=== PATIENT | female | born 1980 | race Two or more races ===

== ENCOUNTER 2019-01-04 08:46 | Inpatient (IN) | payer MEDICAID ==
[~2019-01-04] VITALS: Ht 152.4 cm; Wt 68.7 kg
[2019-01-04 08:58] VITALS: Ht 152.4 cm; Wt 68.7 kg
[2019-01-04] MEDS ORDERED: LIDOCAINE 1% (MDV) 20 ML INJ SC ONE ×2 (09:30→11:00)
[2019-01-04] MEDS ORDERED: HYDROCODONE/APAP (5/325) TAB PO ONE ×3 (11:00→20:00)
[2019-01-04] MEDS ORDERED: ONDANSETRON 4 MG INJ IV STA (14:45)
[2019-01-04] MEDS ORDERED: morphine 4 MG/ML VIAL IV STA (14:45)
[2019-01-04] MEDS ORDERED: PIPER-TAZO 3.375 GM IV (PMX) 100 ML IVPB ONE (15:00)
[2019-01-04] MEDS ORDERED: SOD CHLORIDE 0.9% 1,000 ML IV ONE (15:00)
[2019-01-04] MEDS ORDERED: FLUCONAZOLE 150 MG TAB PO ONE (16:00)
--- NOTE | 2019-01-04 16:50 | QN ---
Documentation Comment Exhibit Carpenter consult Thank you for consulting with us 38 yo female with DM and wide cellulitis on her perineum and right side of labia major extending to thigh crease The abscess has been drained b ER provider and packed . There is a possibility that the abscess is not completely drained , CT pictures reviewed --->As the area is very swollen and traumatized and inflamed and there is a wide cellulitis,I do recommend admission and wide spectrum antibiotics and pain management --->patient will be reevaluated by Exhibit Carpenter team as soon as the inflammation goes down for the possible need for further drainage -->Please contact balloon artist physician for further evaluation EMILIANO VALENTE M.D. Jan 04, 2019 16:50
[2019-01-04] MEDS ORDERED: ACETAMINOPHEN 325 MG TAB PO PRN ×2 (18:00→22:00)
[2019-01-04] MEDS ORDERED: ONDANSETRON 4 MG INJ IV PRN (18:00)
--- NOTE | 2019-01-04 18:16 | HP ---
Date/Time of Note Date/Time of Note DATE: 01/04/19 TIME: 18:13 Assessment/Plan VTE Prophylaxis SCD contraindicated: low risk/ambulating Pharmacological prophylaxis: NA/contraindicated Pharm contraindication: low risk/ambulating Lines/Catheters IV Catheter Type (from Nrsg): Saline Lock Assessment/Plan Result Diagram: 01/04/19 1459 01/04/19 1459 Results 24hrs Laboratory Tests Test 01/04/19 12:59 01/04/19 14:59 01/04/19 15:04 01/04/19 15:21 POC Beta HCG, NEGATIVE Qualitative White Blood Count 13.1 H Red Blood Count 4.55 Hemoglobin 14.3 Hematocrit 41.6 Mean Corpuscular 91.4 Volume Mean Corpuscular 31.4 Hemoglobin Mean Corpuscular 34.4 Hemoglobin Concent Red Cell 11.7 Distribution Width Platelet Count 329 Mean Platelet Volume 10.1 Immature 0.400 Granulocytes % Neutrophils % 68.0 Lymphocytes % 24.2 Monocytes % 6.3 Eosinophils % 0.5 Basophils % 0.6 Nucleated Red Blood 0.0 Cells % Immature 0.050 H Granulocytes # Neutrophils # 8.9 H Lymphocytes # 3.2 H Monocytes # 0.8 Eosinophils # 0.1 Basophils # 0.1 Nucleated Red Blood 0.0 Cells # Sodium Level 138 Potassium Level 4.3 Chloride Level 99 Carbon Dioxide Level 30 Anion Gap 9 Blood Urea Nitrogen 6 L Creatinine 0.38 L Est Glomerular > 60 Filtrat Rate mL/min Glucose Level 277 H Calcium Level 9.7 Total Bilirubin 0.9 Direct Bilirubin 0.00 Indirect Bilirubin 0.9 Aspartate Amino 24 Transf (AST/SGOT) Alanine 15 Aminotransferase (AL T/SGPT) Alkaline Phosphatase 69 Total Protein 7.2 Albumin 4.2 Globulin 3.00 Albumin/Globulin 1.40 Ratio Bedside Glucose 257 H 253 H HPI/ROS Admit Date/Time Admit Date/Time Hx of Present Illness 38 yo female with DM and wide cellulitis on her perineum and right side of labia major extending to thigh crease The abscess has been drained b ER provider and packed . There is a possibility that the abscess is not completely drained , CT pictures reviewed --->As the area is very swollen and traumatized and inflamed and there is a wide cellulitis,I do recommend admission and wide spectrum antibiotics and pain management --->patient will be reevaluated by Pilling Machine Operator team as soon as the inflammation goes down for the possible need for further drainage I will be leaving at 7 PM and will take over the care of this patient ROS Constitutional: no complaints, improved Eyes: no complaints ENT: no complaints Respiratory: no complaints Cardiovascular: no complaints Gastrointestinal: no complaints Genitourinary: no complaints Musculoskeletal: no complaints Skin: no complaints Neurologic: no complaints Endocrine: no complaints Lymphatic: no complaints Psychological: no complaints, nl mood/affect Immunologic: no complaints PMH/Family/Social Past Medical History Medical History: diabetes Medications Current Medications Ondansetron HCl (Zofran Inj) 4 mg BRIDGE ORDER PRN IV NAUSEA/VOMITING; Start 01/04/19 at 18:00; Stop 01/05/19 at 17:59 Acetaminophen (Tylenol Tab) 650 mg ER BRIDGE PRN PO .MILD PAIN 1-3 OR TEMP; Start 01/04/19 at 18:00; Stop 01/05/19 at 17:59 Coded Allergies: No Known Allergy (Unverified , 01/04/19) Past Surgical History Past Surgical Hx: no surgical history Family History Significant Family History: no pertinent family hx Social History Smoking Status: Never smoker Exam/Review of Systems Vital Signs Vitals Vital Signs Date Temp Pulse Resp B/P (MAP) Pulse Ox O2 O2 Flow FiO2 Time Delivery Rate 01/04/19 98.7 94 18 101/60 98 Room Air 17:38 (74) Exam Constitutional: alert Psych: no complaints Head: normocephalic Gastrointestinal: soft, nl liver, spleen Genitourinary - Female: nl adnexae, other (Perineal celulitis and Right vulvar abscess) Extremities: normal pulses 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 Jan 04, 2019 18:16
--- NOTE | 2019-01-04 19:58 | ERD ---
ER Documentation Chief Complaint Chief Complaint painful lump on vaginal area x 2 days HPI History of Present Illness: 38-year-old female with past medical history of diabetes coming in today with painful lump on right side of vaginal labia that has been present for 2 days. Patient reports pain and swelling has increased significantly over the past 2 days in which now she is unable to walk without difficulty or stand without difficulty at work. Patient denies fever, chills, fatigue. Patient also reporting some vaginal itching; reports that she has history of frequent yeast infections due to her diabetes. At home pharmacological/nonpharmacological treatment for symptoms: denies Denies social concerns; Denies recent foreign travel ROS All systems reviewed and are negative except as per history of present illness. Allergies Allergies: Coded Allergies: No Known Allergy (Unverified , 01/04/19) PMhx/Soc History of Surgery: Yes (INGROWN HAIR) Anesthesia Reaction: No Hx Neurological Disorder: No Hx Respiratory Disorders: No Hx Cardiac Disorders: No Hx Psychiatric Problems: No Hx Miscellaneous Medical Probl: No Hx Alcohol Use: Yes Hx Substance Use: No Hx Tobacco Use: No Smoking Status: Never smoker FmHx Family History: diabetes Physical Exam Vitals Vital Signs Date Temp Pulse Resp B/P (MAP) Pulse Ox O2 O2 Flow FiO2 Time Delivery Rate 01/04/19 98.7 94 18 101/60 98 Room Air 17:38 (74) 01/04/19 98.2 96 18 112/66 97 Room Air 14:49 (81) 01/04/19 98.6 90 18 145/64 100 08:58 (91) Physical Exam Const: Mild acute distress, patient tearful before examination began Head: Atraumatic Eyes: Normal Conjunctiva ENT: Normal External Ears, Nose and Mouth. Neck: Full range of motion. No meningismus. Resp: Clear to auscultation bilaterally Cardio: Regular rate and rhythm, no murmurs Abd: Soft, non tender, non distended. Normal bowel sounds Skin: No petechiae or rashes Back: No midline or flank tenderness Ext: No cyanosis, or edema Neur: Awake and alert Psych: Normal Mood and Affect Genitalia: Vaginal discharge consistent with candidiasis noted to vaginal canal/orifice. Right labia swollen, no warmth present. Positive induration and fluctuance noted. Fluctuance extend entire right labia, more medially. Induration present to lateral side of right labia. Result Diagram: 01/04/19 1459 01/04/19 1459 Results 24 hrs Laboratory Tests Test 01/04/19 12:59 01/04/19 14:59 01/04/19 15:04 01/04/19 15:21 POC Beta HCG, NEGATIVE Qualitative White Blood Count 13.1 10^3/ul Red Blood Count 4.55 10^6/ul Hemoglobin 14.3 g/dl Hematocrit 41.6 % Mean Corpuscular 91.4 fl Volume Mean Corpuscular 31.4 pg Hemoglobin Mean Corpuscular 34.4 g/dl Hemoglobin Concent Red Cell 11.7 % Distribution Width Platelet Count 329 10^3/UL Mean Platelet 10.1 fl Volume Immature 0.400 % Granulocytes % Neutrophils % 68.0 % Lymphocytes % 24.2 % Monocytes % 6.3 % Eosinophils % 0.5 % Basophils % 0.6 % Nucleated Red Blood 0.0 /100WBC Cells % Immature 0.050 10^3/ul Granulocytes # Neutrophils # 8.9 10^3/ul Lymphocytes # 3.2 10^3/ul Monocytes # 0.8 10^3/ul Eosinophils # 0.1 10^3/ul Basophils # 0.1 10^3/ul Nucleated Red Blood 0.0 10^3/ul Cells # Sodium Level 138 mmol/L Potassium Level 4.3 mmol/L Chloride Level 99 mmol/L Carbon Dioxide 30 mmol/L Level Anion Gap 9 Blood Urea Nitrogen 6 mg/dl Creatinine 0.38 mg/dl Est Glomerular > 60 mL/min Filtrat Rate mL/min Glucose Level 277 mg/dl Calcium Level 9.7 mg/dl Total Bilirubin 0.9 mg/dl Direct Bilirubin 0.00 mg/dl Indirect Bilirubin 0.9 mg/dl Aspartate Amino 24 IU/L Transf (AST/SGOT) Alanine 15 IU/L Aminotransferase (A LT/SGPT) Alkaline 69 IU/L Phosphatase Total Protein 7.2 g/dl Albumin 4.2 g/dl Globulin 3.00 g/dl Albumin/Globulin 1.40 Ratio Bedside Glucose 257 mg/dL 253 mg/dL Current Medications Medications Dose Sig/Jesus Start Time Status Last (Trade) Ordered Route PRN Stop Time Admin Dose Reason Admin Lidocaine 20 ml ONCE ONCE 01/04/19 DC (Xylocaine SC 09:30 1% (Mdv) 20 01/04/19 09:31 ml) Lidocaine 20 ml ONCE ONCE 01/04/19 DC (Xylocaine SC 11:00 1% (Mdv) 20 01/04/19 11:01 ml) 1 tab ONCE ONCE 01/04/19 DC 01/04/19 Acetaminophen PO 11:00 10:59 / 01/04/19 11:01 Hydrocodone Bitart (Media (5/325)) Sodium 1,000 ml @ Q1H ONCE 01/04/19 DC 01/04/19 Chloride 1,000 mls/hr IV 15:00 14:55 01/04/19 15:59 Piperacillin 100 ml @ ONCE ONCE 01/04/19 DC 01/04/19 Sod/ 200 mls/hr IVPB 15:00 15:12 Tazobactam 01/04/19 15:29 Sod Morphine 4 mg ONCE STAT 01/04/19 DC 01/04/19 Sulfate IV 14:45 14:55 (morphine) 01/04/19 14:49 Ondansetron 4 mg ONCE STAT 01/04/19 DC 01/04/19 HCl (Zofran IV 14:45 14:56 Inj) 01/04/19 14:49 1 tab ONCE ONCE 01/04/19 DC Acetaminophen PO 15:00 / 01/04/19 15:01 Hydrocodone Bitart (Media (5/325)) Fluconazole 150 mg ONCE ONCE 01/04/19 DC 01/04/19 (Diflucan) PO 16:00 16:04 01/04/19 16:01 Ondansetron 4 mg BRIDGE ORDER 01/04/19 HCl (Zofran PRN IV 18:00 01/05/19 Inj) NAUSEA/VOMITI 17:59 NG 650 mg ER BRIDGE 01/04/19 Acetaminophen PRN PO 18:00 01/05/19 (Tylenol .MILD PAIN 17:59 Tab) 1-3 OR TEMP Procedures/MDM ED course includes a thorough examination and history. Medications: Media Imaging: - Labs: -- Abscess Incision and Drainage with irrigation by me: Location: Right labia Anesthesia: Local 1% Lidocaine Technique: Irrigated. Disrupted loculations w/ instrumentation Packing: Iodoform Complications: Neurovascularly intact post procedure; only mild drainage noted with incision and drainage. High suspicion for not emptying entire contents of abscess ED physician consultation with Dr. Ac; states it would be more appropriate to consult gynecology for further evaluation. MANAGER UNDERWRITING to bedside @ 12:05 to evaluate patient. Verbal orders to do CT abdomen pelvis without contrast. Consult with MANAGER UNDERWRITING regarding CT results. Results showing: IMPRESSION: 1. Subcutaneous edema is seen throughout the right labia, possibly indicating cellulitis. There is suspicion of a 3 cm of loculated fluid collection in the lateral aspect of the right labia - abscess is not excluded. Hyperdense material is seen at the medial aspect of the right labia, as above, presumably wound packing material - correlate clinically. 2. Mild hepatic steatosis. 3. Scattered atherosclerotic calcifications. 4. Small benign calcified uterine fibroid. RPTAT: [facility] .Terrence Alba MD, MD Dr. Mccarty states to admit the patient with WAREHOUSE ASSOCIATE consult; initiate antibiotics for Zosyn. Will add CBC, CMP, morphine, Media. Disposition for admission. ED Dr. Wilkins is consulted. MANAGER UNDERWRITING Dr. Mccarty spoke to ED Dr. Wilkins in person. Departure Diagnosis: Primary Impression: Complicated abscess Additional Impressions: Abscess of right genital labia History of diabetes mellitus Condition: BRENDA Galarza NP Jan 04, 2019 19:53
[2019-01-04] MEDS ORDERED: ONDANSETRON (ODT) 4 MG TAB ODT STA (19:59)
[2019-01-04] MEDS ORDERED: morphine 2 MG INJ IV STA (19:59)
[2019-01-04] MEDS ORDERED: SOD CHLORIDE 0.9% 500 ML IV ONE (20:00)
[2019-01-04 21:10] VITALS: BP 117/69; PULSE 96; RESP 18
[2019-01-04] MEDS ORDERED: METF500T24 PO (21:23)
[2019-01-04] MEDS ORDERED: DEXTROSE 50% 50 ML SYRINGE IV PRN ×2 (22:00)
[2019-01-04] MEDS ORDERED: GLUCAGON 1 MG INJ IM PRN (22:00)
[2019-01-04] MEDS ORDERED: GLUCOSE GEL 15 GRAM TUBE PO PRN ×2 (22:00)
[2019-01-04] MEDS ORDERED: INSULIN GLARGINE [LANTus] (100 UNITS/ML) SYG SC ONE (22:00)
[2019-01-04] MEDS ORDERED: GLUCOSE GEL 15 GRAM TUBE BUCCAL PRN (22:00)
--- NOTE | 2019-01-04 22:17 | CONS ---
Assessment/Plan Assessment/Plan Hospital Course (Demo Recall) 1. Uncontrolled diabetes mellitus: Patient blood sugar noted to be in the 300s previously on insulin. Currently only on metformin. Will initiate weight-based dose of Lantus. Insulin sliding scale. Will check hemoglobin A1c. We will need to optimize patient's blood sugars. We will consult social work regarding assistance with insulin prescription. #2 vulvar abscess: Continue antibiotics, further management as per PRODUCTION PATTERN MAKER Further treatment strategy will be implemented as per clinical course Thank you for this consult we will follow with you. Consultation Date/Type/Reason Admit Date/Time Jan 04, 2019 Date of Consultation: Jan 04, 2019 Reason for Consultation DM management Requesting Provider: SARA WEBB MD Date/Time of Note DATE: 01/04/19 TIME: 22:16 Hx of Present Illness This is a 38-year-old female with a history of diabetes mellitus who presented for a valvular abscess. She apparently had a follicular abscess drained which required further management by PRODUCTION PATTERN MAKER and was admitted. Patient is currently being seen by the PRODUCTION PATTERN MAKER service and on antibiotic. We were consulted to help manage her diabetes. Patient reports that she has had diabetes for many years. She was previously on insulin however secondary to insurance reasons she was not able to get insulin anymore. She does not have a primary care doctor. She does report discomfort in the valvular area. She is only currently on metformin. Allergies: NKDA Medications: Metformin Const: As per HPI Eyes : No pain discharge or redness or change in visual acuity ENT: No pain, sore throat, congestion, congestion, dysphagia or discharge Respiratory: No shortness of breath, cough, sputum, wheezing, or pleuritic pain Cardiovascular: No chest pain, palpitation, PND, or edema GI : no change in appetite, abdominal pain, nausea, vomiting, diarrhea, constipation, or change in the color his stool Genitourinary: As per HPI Musculoskeletal: No joint pain, back pain, neck pain, restricted range of motion in neck or joints Skin: No rash, bruising or hives Neuro: No headache, dizziness, syncope, seizure, focal weakness Endocrine: No polyuria, polydipsia, temperature intolerance Psych: No hallucination, depression, anxiety or suicidal ideation Past Medical History Medical History: diabetes Home Meds Reported Medications Metformin Hcl* (Metformin Hcl*) 500 Mg Tablet, 500 MG PO BID WITH MEALS 01/04/19 Medications Current Medications Metformin HCl (Glucophage) 500 mg BID WITH MEALS PO ; Start 01/05/19 at 08:00 Acetaminophen (Tylenol Tab) 650 mg Q4H PRN PO MILD PAIN(1-3)OR ELEVATED TEMP; Start 01/04/19 at 22:00 Miscellaneous Information 1 ea NOTE XX ; Start 01/04/19 at 22:00 Glucose (Glutose) 15 gm Q15M PRN PO DECREASED GLUCOSE; Start 01/04/19 at 22:00 Glucose (Glutose) 22.5 gm Q15M PRN PO DECREASED GLUCOSE; Start 01/04/19 at 22:00 Dextrose (D50w Syringe) 25 ml Q15M PRN IV DECREASED GLUCOSE; Start 01/04/19 at 22:00 Dextrose (D50w Syringe) 50 ml Q15M PRN IV DECREASED GLUCOSE; Start 01/04/19 at 22:00 Glucagon (Glucagen) 1 mg Q15M PRN IM DECREASED GLUCOSE; Start 01/04/19 at 22:00 Glucose (Glutose) 15 gm Q15M PRN BUCCAL DECREASED GLUCOSE; Start 01/04/19 at 22:00 Diagnostic Test (Pha) (Accu-Chek) 1 ea 02 XX ; Start 01/05/19 at 02:00 Insulin Aspart (Novolog Insulin Pen) NOVOLOG *MILD* ALGORITHM WITH MEALS BEDTIME SC ; Start 01/05/19 at 08:00 Insulin Glargine (Lantus) 11 units DAILY@2000 SC ; Start 01/05/19 at 20:00 Allergies: Coded Allergies: No Known Allergy (Unverified , 01/04/19) Past Surgical History I&D of ovular abscess, previous pilonidal cyst surgery? Family History Significant Family History: no pertinent family hx Social History Alcohol Use: none Smoking Status: Never smoker Drug Use: none Exam/Review of Systems Exam Vitals Vital Signs Date Temp Pulse Resp B/P (MAP) Pulse Ox O2 O2 Flow FiO2 Time Delivery Rate 01/04/19 98.7 99 18 104/62 99 Room Air 20:39 (76) Exam General: Patient is a pleasant female currently lying in bed, she appears to be in no acute distress HEENT: Atraumatic, normocephalic. The pupils are equal, round and reactive. Extraocular motor are intact Neck: Supple with full range of motion. No rigidity or meningismus Chest: Nontender Lungs: Clear to auscultation bilaterally no crackles rales or wheezing Heart: Normal S1-S2, Regular rhythm and rate. No murmur, S3, or S4 Abdomen: Obese, soft , nontender, nondistended , bowel sounds are present. No guarding no rebound tenderness , No masses or organomegaly. No costovertebral temporal angle mass Extremities: Normal to inspection, no edema no cyanosis Genitourinary exam: Deferred Neurologic: Normal mental status, speech normal, cranial nerves II through XII are intact, motor and sensory are intact, no focal weakness Results Result Diagram: 01/04/19 1459 01/04/19 1459 Results 24hrs Laboratory Tests Test 01/04/19 12:59 01/04/19 14:59 01/04/19 15:04 01/04/19 15:21 POC Beta HCG, NEGATIVE Qualitative White Blood Count 13.1 H Red Blood Count 4.55 Hemoglobin 14.3 Hematocrit 41.6 Mean Corpuscular 91.4 Volume Mean Corpuscular 31.4 Hemoglobin Mean Corpuscular 34.4 Hemoglobin Concent Red Cell 11.7 Distribution Width Platelet Count 329 Mean Platelet Volume 10.1 Immature 0.400 Granulocytes % Neutrophils % 68.0 Lymphocytes % 24.2 Monocytes % 6.3 Eosinophils % 0.5 Basophils % 0.6 Nucleated Red Blood 0.0 Cells % Immature 0.050 H Granulocytes # Neutrophils # 8.9 H Lymphocytes # 3.2 H Monocytes # 0.8 Eosinophils # 0.1 Basophils # 0.1 Nucleated Red Blood 0.0 Cells # Sodium Level 138 Potassium Level 4.3 Chloride Level 99 Carbon Dioxide Level 30 Anion Gap 9 Blood Urea Nitrogen 6 L Creatinine 0.38 L Est Glomerular > 60 Filtrat Rate mL/min Glucose Level 277 H Calcium Level 9.7 Total Bilirubin 0.9 Direct Bilirubin 0.00 Indirect Bilirubin 0.9 Aspartate Amino 24 Transf (AST/SGOT) Alanine 15 Aminotransferase (AL T/SGPT) Alkaline Phosphatase 69 Total Protein 7.2 Albumin 4.2 Globulin 3.00 Albumin/Globulin 1.40 Ratio Bedside Glucose 257 H 253 H Test 01/04/19 21:30 Bedside Glucose 342 H Medications Medication Current Medications Metformin HCl (Glucophage) 500 mg BID WITH MEALS PO ; Start 01/05/19 at 08:00 Acetaminophen (Tylenol Tab) 650 mg Q4H PRN PO MILD PAIN(1-3)OR ELEVATED TEMP; Start 01/04/19 at 22:00 Miscellaneous Information 1 ea NOTE XX ; Start 01/04/19 at 22:00 Glucose (Glutose) 15 gm Q15M PRN PO DECREASED GLUCOSE; Start 01/04/19 at 22:00 Glucose (Glutose) 22.5 gm Q15M PRN PO DECREASED GLUCOSE; Start 01/04/19 at 22:00 Dextrose (D50w Syringe) 25 ml Q15M PRN IV DECREASED GLUCOSE; Start 01/04/19 at 22:00 Dextrose (D50w Syringe) 50 ml Q15M PRN IV DECREASED GLUCOSE; Start 01/04/19 at 22:00 Glucagon (Glucagen) 1 mg Q15M PRN IM DECREASED GLUCOSE; Start 01/04/19 at 22:00 Glucose (Glutose) 15 gm Q15M PRN BUCCAL DECREASED GLUCOSE; Start 01/04/19 at 22:00 Diagnostic Test (Pha) (Accu-Chek) 1 ea 02 XX ; Start 01/05/19 at 02:00 Insulin Aspart (Novolog Insulin Pen) NOVOLOG *MILD* ALGORITHM WITH MEALS BEDTIME SC ; Start 01/05/19 at 08:00 Insulin Glargine (Lantus) 11 units DAILY@2000 SC ; Start 01/05/19 at 20:00 ADAM KHAN Jan 04, 2019 22:17
[2019-01-04] MEDS: INSULIN ASPART [NOVOLOG] 3 ML PEN SC SCH (22:56)
[2019-01-05 01:55] VITALS: BP 121/67; PULSE 90; RESP 17
[2019-01-05] MEDS: ACCU-CHEK XX SCH (02:14)
[2019-01-05] MEDS: morphine 2 MG INJ IV PRN ×5 (02:19→21:38)
[2019-01-05 08:02] VITALS: BP 94/60; PULSE 84; RESP 18
[2019-01-05] MEDS: metFORMIN 500 MG TAB PO SCH ×2 (08:22→17:21)
[2019-01-05] MEDS: INSULIN ASPART [NOVOLOG] 3 ML PEN SC SCH ×5 (08:22→20:31)
--- NOTE | 2019-01-05 12:27 | PN ---
Date/Time of Note Date/Time of Note DATE: 01/05/19 TIME: 12:22 Assessment/Plan VTE Prophylaxis Pharmacological prophylaxis: NA/contraindicated Pharm contraindication: low risk/ambulating Lines/Catheters IV Catheter Type (from Nrsg): Saline Lock Assessment/Plan Hospital Course 1. Uncontrolled diabetes mellitus: -a1c 13.9 -continue lantus, metformin, add novolog -dm education 2. Perineal cellulitis with vulvar abscess: s/p lancing and packing in ER Continue antibiotics, further management as per LOCKSTITCH CUP SETTER Wound cultures from ER drainage still pending add antifungal CT pelvis pending supportive care and pain control Further treatment strategy will be implemented as per clinical course Thank you for this consult we will follow with you. Result Diagram: 01/05/1961301/05/1914 Results 24hrs Laboratory Tests Test 01/04/19 12:59 01/04/19 14:59 01/04/19 15:04 01/04/19 15:21 POC Beta HCG, NEGATIVE Qualitative White Blood Count 13.1 H Red Blood Count 4.55 Hemoglobin 14.3 Hematocrit 41.6 Mean Corpuscular 91.4 Volume Mean Corpuscular 31.4 Hemoglobin Mean Corpuscular 34.4 Hemoglobin Concent Red Cell 11.7 Distribution Width Platelet Count 329 Mean Platelet Volume 10.1 Immature 0.400 Granulocytes % Neutrophils % 68.0 Lymphocytes % 24.2 Monocytes % 6.3 Eosinophils % 0.5 Basophils % 0.6 Nucleated Red Blood 0.0 Cells % Immature 0.050 H Granulocytes # Neutrophils # 8.9 H Lymphocytes # 3.2 H Monocytes # 0.8 Eosinophils # 0.1 Basophils # 0.1 Nucleated Red Blood 0.0 Cells # Sodium Level 138 Potassium Level 4.3 Chloride Level 99 Carbon Dioxide Level 30 Anion Gap 9 Blood Urea Nitrogen 6 L Creatinine 0.38 L Est Glomerular > 60 Filtrat Rate mL/min Glucose Level 277 H Calcium Level 9.7 Total Bilirubin 0.9 Direct Bilirubin 0.00 Indirect Bilirubin 0.9 Aspartate Amino 24 Transf (AST/SGOT) Alanine 15 Aminotransferase (AL T/SGPT) Alkaline Phosphatase 69 Total Protein 7.2 Albumin 4.2 Globulin 3.00 Albumin/Globulin 1.40 Ratio Bedside Glucose 257 H 253 H Test 01/04/19 21:30 01/04/19 22:48 01/05/19 02:11 01/05/19 06:14 Bedside Glucose 342 H 305 H 260 H White Blood Count 10.0 # Red Blood Count 3.71 L Hemoglobin 11.8 L Hematocrit 34.4 L Mean Corpuscular 92.7 Volume Mean Corpuscular 31.8 Hemoglobin Mean Corpuscular 34.3 Hemoglobin Concent Red Cell 11.8 Distribution Width Platelet Count 278 Mean Platelet Volume 10.2 Immature 0.600 H Granulocytes % Neutrophils % 55.6 Lymphocytes % 34.3 Monocytes % 8.0 Eosinophils % 1.0 Basophils % 0.5 Nucleated Red Blood 0.0 Cells % Immature 0.060 H Granulocytes # Neutrophils # 5.6 Lymphocytes # 3.4 H Monocytes # 0.8 Eosinophils # 0.1 Basophils # 0.1 Nucleated Red Blood 0.0 Cells # Sodium Level 137 Potassium Level 3.5 Chloride Level 100 Carbon Dioxide Level 29 Anion Gap 8 Blood Urea Nitrogen 7 Creatinine 0.38 L Est Glomerular > 60 Filtrat Rate mL/min Glucose Level 233 H Hemoglobin A1c 13.9 H Calcium Level 9.0 Total Bilirubin 0.7 Direct Bilirubin 0.00 Indirect Bilirubin 0.7 Aspartate Amino 19 Transf (AST/SGOT) Alanine 16 Aminotransferase (AL T/SGPT) Alkaline Phosphatase 54 Total Protein 6.2 # Albumin 3.2 #L Globulin 3.00 Albumin/Globulin 1.06 Ratio Test 01/05/19 08:19 Bedside Glucose 234 H Subjective 24 Hr Interval Summary Free Text/Dictation pain Exam/Review of Systems Exam Vitals Vital Signs Date Temp Pulse Resp B/P (MAP) Pulse Ox O2 O2 Flow FiO2 Time Delivery Rate 01/05/19 98.2 84 18 94/60 (71) 97 Room Air 08:02 Intake and Output 01/04/19 01/04/19 01/05/19 1515:00 23:00 07:00 IntakeIntake Total 1100 ml BalanceBalance 1100 ml Exam Constitutional: alert, oriented Head: atraumatic, normocephalic Neck: non-tender, supple Respiratory: clear to auscultation Cardiovascular: regular rate and rhythm Gastrointestinal: S/ NT / ND / +BS Extremities: no edema, good radial pulses : R labial swelling and tenderness, little orifice with packing inferiorly, no obvious discharge Results Results 24hrs Laboratory Tests Test 01/04/19 12:59 01/04/19 14:59 01/04/19 15:04 01/04/19 15:21 POC Beta HCG, NEGATIVE Qualitative White Blood Count 13.1 H Red Blood Count 4.55 Hemoglobin 14.3 Hematocrit 41.6 Mean Corpuscular 91.4 Volume Mean Corpuscular 31.4 Hemoglobin Mean Corpuscular 34.4 Hemoglobin Concent Red Cell 11.7 Distribution Width Platelet Count 329 Mean Platelet Volume 10.1 Immature 0.400 Granulocytes % Neutrophils % 68.0 Lymphocytes % 24.2 Monocytes % 6.3 Eosinophils % 0.5 Basophils % 0.6 Nucleated Red Blood 0.0 Cells % Immature 0.050 H Granulocytes # Neutrophils # 8.9 H Lymphocytes # 3.2 H Monocytes # 0.8 Eosinophils # 0.1 Basophils # 0.1 Nucleated Red Blood 0.0 Cells # Sodium Level 138 Potassium Level 4.3 Chloride Level 99 Carbon Dioxide Level 30 Anion Gap 9 Blood Urea Nitrogen 6 L Creatinine 0.38 L Est Glomerular > 60 Filtrat Rate mL/min Glucose Level 277 H Calcium Level 9.7 Total Bilirubin 0.9 Direct Bilirubin 0.00 Indirect Bilirubin 0.9 Aspartate Amino 24 Transf (AST/SGOT) Alanine 15 Aminotransferase (AL T/SGPT) Alkaline Phosphatase 69 Total Protein 7.2 Albumin 4.2 Globulin 3.00 Albumin/Globulin 1.40 Ratio Bedside Glucose 257 H 253 H Test 01/04/19 21:30 01/04/19 22:48 01/05/19 02:11 01/05/19 06:14 Bedside Glucose 342 H 305 H 260 H White Blood Count 10.0 # Red Blood Count 3.71 L Hemoglobin 11.8 L Hematocrit 34.4 L Mean Corpuscular 92.7 Volume Mean Corpuscular 31.8 Hemoglobin Mean Corpuscular 34.3 Hemoglobin Concent Red Cell 11.8 Distribution Width Platelet Count 278 Mean Platelet Volume 10.2 Immature 0.600 H Granulocytes % Neutrophils % 55.6 Lymphocytes % 34.3 Monocytes % 8.0 Eosinophils % 1.0 Basophils % 0.5 Nucleated Red Blood 0.0 Cells % Immature 0.060 H Granulocytes # Neutrophils # 5.6 Lymphocytes # 3.4 H Monocytes # 0.8 Eosinophils # 0.1 Basophils # 0.1 Nucleated Red Blood 0.0 Cells # Sodium Level 137 Potassium Level 3.5 Chloride Level 100 Carbon Dioxide Level 29 Anion Gap 8 Blood Urea Nitrogen 7 Creatinine 0.38 L Est Glomerular > 60 Filtrat Rate mL/min Glucose Level 233 H Hemoglobin A1c 13.9 H Calcium Level 9.0 Total Bilirubin 0.7 Direct Bilirubin 0.00 Indirect Bilirubin 0.7 Aspartate Amino 19 Transf (AST/SGOT) Alanine 16 Aminotransferase (AL T/SGPT) Alkaline Phosphatase 54 Total Protein 6.2 # Albumin 3.2 #L Globulin 3.00 Albumin/Globulin 1.06 Ratio Test 01/05/19 08:19 Bedside Glucose 234 H Medications Medication Current Medications Metformin HCl (Glucophage) 500 mg BID WITH MEALS PO Last administered on 01/05/19at 08:22; Admin Dose 500 MG; Start 01/05/19 at 08:00 Acetaminophen (Tylenol Tab) 650 mg Q4H PRN PO MILD PAIN(1-3)OR ELEVATED TEMP; Start 01/04/19 at 22:00 Miscellaneous Information 1 ea NOTE XX ; Start 01/04/19 at 22:00 Glucose (Glutose) 15 gm Q15M PRN PO DECREASED GLUCOSE; Start 01/04/19 at 22:00 Glucose (Glutose) 22.5 gm Q15M PRN PO DECREASED GLUCOSE; Start 01/04/19 at 22:00 Dextrose (D50w Syringe) 25 ml Q15M PRN IV DECREASED GLUCOSE; Start 01/04/19 at 22:00 Dextrose (D50w Syringe) 50 ml Q15M PRN IV DECREASED GLUCOSE; Start 01/04/19 at 22:00 Glucagon (Glucagen) 1 mg Q15M PRN IM DECREASED GLUCOSE; Start 01/04/19 at 22:00 Glucose (Glutose) 15 gm Q15M PRN BUCCAL DECREASED GLUCOSE; Start 01/04/19 at 22:00 Diagnostic Test (Pha) (Accu-Chek) 1 ea 02 XX Last administered on 01/05/19at 02:14; Admin Dose 1 EA; Start 01/05/19 at 02:00 Insulin Aspart (Novolog Insulin Pen) NOVOLOG *MILD* ALGORITHM WITH MEALS BEDTIME SC Last administered on 01/05/19at 08:22; Admin Dose 3 UNIT; Start 01/05/19 at 08:00 Insulin Glargine (Lantus) 11 units DAILY@2000 SC ; Start 01/05/19 at 20:00 Morphine Sulfate (morphine) 2 mg Q4H PRN IV SEVERE PAIN LEVEL 7-10 Last administered on 01/05/19at 08:26; Admin Dose 2 MG; Start 01/05/19 at 02:00 ДМИТРИЙ DALTON January 05, 2019 12:27
[2019-01-05 13:38] VITALS: BP 95/58; PULSE 91; RESP 18
[2019-01-05] MEDS: FLUCONAZOLE 200 MG (PMX) 100 ML IVPB SCH (15:49)
[2019-01-05] MEDS ORDERED: INSULIN GLARGINE [LANTus] (100 UNITS/ML) SYG SC SCH (20:00)
[2019-01-05 20:30] VITALS: BP 103/64; PULSE 91; RESP 18
[2019-01-05] MEDS: INSULIN GLARGINE [LANTus] (100 UNITS/ML) SYG SC SCH (20:32)
[2019-01-06] MEDS: morphine 2 MG INJ IV PRN ×6 (01:26→22:10)
[2019-01-06] MEDS: ACCU-CHEK XX SCH (01:31)
[2019-01-06 02:00] VITALS: BP 91/60; PULSE 87; RESP 18
[2019-01-06] MEDS ORDERED: VITAMIN A & D 5 GM OINT PACKET TOP ONE (02:42)
[2019-01-06 07:14] VITALS: BP 94/60; PULSE 88; RESP 18; RESP 88
[2019-01-06] MEDS: metFORMIN 500 MG TAB PO SCH ×2 (08:30→17:11)
[2019-01-06] MEDS: INSULIN ASPART [NOVOLOG] 3 ML PEN SC SCH ×7 (08:32→20:44)
[2019-01-06] MEDS: HYDROCODONE/APAP (5/325) TAB PO PRN ×3 (10:45→23:35)
--- NOTE | 2019-01-06 14:08 | PN ---
Date/Time of Note Date/Time of Note DATE: 01/06/19 TIME: 13:57 Assessment/Plan VTE Prophylaxis Risk score (from Ns)>0 risk: 1 SCD applied (from Ns): Yes Pharmacological prophylaxis: NA/contraindicated Pharm contraindication: low risk/ambulating Lines/Catheters [facility]from [facility] Saline Lock Assessment/Plan Hospital Course 1. Uncontrolled diabetes mellitus: -a1c 13.9 -continue lantus, metformin, add novolog -dm education 2. Perineal cellulitis with vulvar abscess: s/p lancing and packin gin ER Continue antibiotics, further management as per MANAGER GAME Wound cultures from drainage still pending Continue antifungal CT still showing abscess despite ER drainage, spoke with LABEL CODER, they will review supportive care and pain control Further treatment strategy will be implemented as per clinical course Thank you for this consult we will follow with you. Result Diagram: 01/06/19 0548 01/06/19 0548 Results 24hrs Laboratory Tests Test 01/05/19 17:18 01/05/19 20:24 01/06/19 01:30 01/06/19 05:48 Bedside Glucose 255 H 239 H 278 H White Blood Count 11.5 H Red Blood Count 4.02 L Hemoglobin 12.5 Hematocrit 37.0 Mean Corpuscular Volume 92.0 Mean Corpuscular 31.1 Hemoglobin Mean Corpuscular 33.8 Hemoglobin Concent Red Cell Distribution 11.9 Width Platelet Count 297 Mean Platelet Volume 9.9 Immature Granulocytes % 0.600 H Neutrophils % 66.1 Lymphocytes % 24.1 Monocytes % 7.8 Eosinophils % 1.0 Basophils % 0.4 Nucleated Red Blood 0.0 Cells % Immature Granulocytes # 0.070 H Neutrophils # 7.6 H Lymphocytes # 2.8 Monocytes # 0.9 Eosinophils # 0.1 Basophils # 0.1 Nucleated Red Blood 0.0 Cells # Sodium Level 136 Potassium Level 4.2 Chloride Level 98 Carbon Dioxide Level 32 H Anion Gap 6 Blood Urea Nitrogen 9 Creatinine 0.43 L Est Glomerular Filtrat > 60 Rate mL/min Glucose Level 217 Calcium Level 9.1 Total Bilirubin 0.5 Direct Bilirubin 0.00 Indirect Bilirubin 0.5 Aspartate Amino 26 Transf (AST/SGOT) Alanine 13 Aminotransferase (ALT/SG PT) Alkaline Phosphatase 53 Total Protein 6.3 Albumin 3.4 Globulin 2.90 Albumin/Globulin Ratio 1.17 Test 01/06/19 08:24 01/06/19 12:42 Bedside Glucose 190 215 Subjective 24 Hr Interval Summary Free Text/Dictation in a lot of pain Exam/Review of Systems Exam Vitals Vital Signs Date Temp Pulse Resp B/P (MAP) Pulse Ox O2 O2 Flow FiO2 Time Delivery Rate 01/06/19 99.1 88 18 94/60 (71) 95 Room Air 07:14 Intake and Output 01/05/19 01/05/19 01/06/19 1414:59 22:59 06:59 IntakeIntake Total 560 ml 1320 ml BalanceBalance 560 ml 1320 ml Exam Constitutional: alert, oriented, painful distress Head: atraumatic, normocephalic Neck: non-tender, supple Respiratory: clear to auscultation Cardiovascular: regular rate and rhythm Gastrointestinal: S/ NT / ND / +BS Extremities: no edema, good radial pulses : Vulval area swollen and tender R>> L, with packed small opening inferiorly, not too erythematous, whitish discharge at the vaginal orifice, tender ++ Results Results 24hrs Laboratory Tests Test 01/05/19 17:18 01/05/19 20:24 01/06/19 01:30 01/06/19 05:48 Bedside Glucose 255 H 239 H 278 H White Blood Count 11.5 H Red Blood Count 4.02 L Hemoglobin 12.5 Hematocrit 37.0 Mean Corpuscular Volume 92.0 Mean Corpuscular 31.1 Hemoglobin Mean Corpuscular 33.8 Hemoglobin Concent Red Cell Distribution 11.9 Width Platelet Count 297 Mean Platelet Volume 9.9 Immature Granulocytes % 0.600 H Neutrophils % 66.1 Lymphocytes % 24.1 Monocytes % 7.8 Eosinophils % 1.0 Basophils % 0.4 Nucleated Red Blood 0.0 Cells % Immature Granulocytes # 0.070 H Neutrophils # 7.6 H Lymphocytes # 2.8 Monocytes # 0.9 Eosinophils # 0.1 Basophils # 0.1 Nucleated Red Blood 0.0 Cells # Sodium Level 136 Potassium Level 4.2 Chloride Level 98 Carbon Dioxide Level 32 H Anion Gap 6 Blood Urea Nitrogen 9 Creatinine 0.43 L Est Glomerular Filtrat > 60 Rate mL/min Glucose Level 217 Calcium Level 9.1 Total Bilirubin 0.5 Direct Bilirubin 0.00 Indirect Bilirubin 0.5 Aspartate Amino 26 Transf (AST/SGOT) Alanine 13 Aminotransferase (ALT/SG PT) Alkaline Phosphatase 53 Total Protein 6.3 Albumin 3.4 Globulin 2.90 Albumin/Globulin Ratio 1.17 Test 01/06/19 08:24 01/06/19 12:42 Bedside Glucose 190 215 Medications Medication Current Medications Metformin HCl (Glucophage) 500 mg BID WITH MEALS PO Last administered on 01/06/19at 08:30; Admin Dose 500 MG; Start 01/05/19 at 08:00 Acetaminophen (Tylenol Tab) 650 mg Q4H PRN PO MILD PAIN(1-3)OR ELEVATED TEMP; Start 01/04/19 at 22:00 Miscellaneous Information 1 ea NOTE XX ; Start 01/04/19 at 22:00 Glucose (Glutose) 15 gm Q15M PRN PO DECREASED GLUCOSE; Start 01/04/19 at 22:00 Glucose (Glutose) 22.5 gm Q15M PRN PO DECREASED GLUCOSE; Start 01/04/19 at 22:00 Dextrose (D50w Syringe) 25 ml Q15M PRN IV DECREASED GLUCOSE; Start 01/04/19 at 22:00 Dextrose (D50w Syringe) 50 ml Q15M PRN IV DECREASED GLUCOSE; Start 01/04/19 at 22:00 Glucagon (Glucagen) 1 mg Q15M PRN IM DECREASED GLUCOSE; Start 01/04/19 at 22:00 Glucose (Glutose) 15 gm Q15M PRN BUCCAL DECREASED GLUCOSE; Start 01/04/19 at 22:00 Diagnostic Test (Pha) (Accu-Chek) 1 ea 02 XX Last administered on 01/05/19at 02:14; Admin Dose 1 EA; Start 01/05/19 at 02:00 Insulin Aspart (Novolog Insulin Pen) NOVOLOG *MILD* ALGORITHM WITH MEALS BEDTIME SC Last administered on 01/06/19at 12:54; Admin Dose 2 UNIT; Start 01/05/19 at 08:00 Insulin Glargine (Lantus) 11 units DAILY@2000 SC Last administered on 01/05/19at 20:32; Admin Dose 11 UNITS; Start 01/05/19 at 20:00 Insulin Aspart (Novolog Insulin Pen) 5 unit WITH MEALS SC Last administered on 01/06/19at 12:54; Admin Dose 5 UNIT; Start 01/05/19 at 18:00 Fluconazole 100 ml @ 100 mls/hr Q24H IVPB Last administered on 01/05/19at 15:49; Admin Dose 100 MLS/HR; Start 01/05/19 at 14:00 Morphine Sulfate (morphine) 2 mg Q3H PRN IV SEVERE PAIN LEVEL 7-10; Start 01/06/19 at 10:30 Acetaminophen/ Hydrocodone Bitart ([place] (5/325)) 1 tab Q6H PRN PO MODERATE PAIN LEVEL 4-6 Last administered on 01/06/19at 10:45; Admin Dose 1 TAB; Start 01/06/19 at 10:30 ДМИТРИЙ DALTON January 06, 2019 14:08
[2019-01-06 14:21] VITALS: BP 92/61; PULSE 94; RESP 16
[2019-01-06] MEDS: FLUCONAZOLE 200 MG (PMX) 100 ML IVPB SCH (14:51)
--- NOTE | 2019-01-06 15:52 | QN ---
Documentation Comment Patient was seen and examined requested by hospitalist due to vulvar cellu litis/vulvar abscess Patient comfortable in the bed. Denies any fever, chills, nausea, vomiting. She reports discomfort still in the abscess area as well as pain when touches. Physical examination: General appearance alert and oriented x4 does not appear to be in any acute distress External genitalia: There is evidence of large right-sided labial cellulitis, with induration with no evidence of fluctuation. There is a Kratzer in the inner side of the right labia in the area of prior drainage. It was packed with idofor, it was removed. There is tenderness in palpation. The area indurated and appears to be cellulitis and does not appear to be drainable There is no extension to the thigh or lower abdomen. Extremities: No calf tenderness, no click no edema no cord palpable HD# Admitted due to Large RT sided vulvar cellulitis s/p drainage x 1. incomplete. He appeared to be still significantly indurated Does not appear to be drainable. No evidence of sepsis Diabetes, poorly controlled, being managed by primary care team I discussed with the patient and RN to perform continuous warm compress of the area to help with the fluctuation, and continue IV antibiotics We will follow while in house. When it is drainable consider drainage in the OR Plan of care discussed with the patient and family PAVEL ESCOBAR MD January 06, 2019 15:52
[2019-01-06] MEDS: PIPER-TAZO 3.375 GM IV (PMX) 100 ML IVPB SCH ×2 (16:54→22:11)
[2019-01-06] MEDS: INSULIN GLARGINE [LANTus] (100 UNITS/ML) SYG SC SCH (20:43)
[2019-01-06 20:51] VITALS: BP 95/52; PULSE 89; RESP 18
[2019-01-07 01:47] VITALS: BP 99/61; PULSE 88; RESP 18
[2019-01-07] MEDS: morphine 2 MG INJ IV PRN ×5 (02:37→21:01)
[2019-01-07] MEDS: ACCU-CHEK XX SCH (02:39)
[2019-01-07] MEDS: PIPER-TAZO 3.375 GM IV (PMX) 100 ML IVPB SCH ×3 (05:43→20:53)
[2019-01-07] MEDS: HYDROCODONE/APAP (5/325) TAB PO PRN ×2 (07:44→17:21)
[2019-01-07 07:50] VITALS: BP 92/61; PULSE 80; RESP 14
[2019-01-07] MEDS: metFORMIN 500 MG TAB PO SCH ×2 (08:29→17:24)
[2019-01-07] MEDS: INSULIN ASPART [NOVOLOG] 3 ML PEN SC SCH ×7 (08:31→20:53)
[2019-01-07] MEDS: DOCUSATE SODIUM 100 MG CAP PO SCH ×2 (09:30→20:45)
[2019-01-07] MEDS ORDERED: ONDANSETRON 4 MG INJ IV PRN (09:30)
[2019-01-07] MEDS: METOCLOPRAMIDE 10 MG INJ IV SCH ×4 (09:39→23:46)
[2019-01-07] MEDS ORDERED: INSULIN GLARGINE [LANTus] (100 UNITS/ML) SYG SC ONE (11:00)
[2019-01-07 14:00] VITALS: BP 98/60; PULSE 88; RESP 16
[2019-01-07] MEDS: FLUCONAZOLE 200 MG (PMX) 100 ML IVPB SCH (15:22)
[2019-01-07 19:20] VITALS: BP 91/51; PULSE 90; RESP 18
[2019-01-07] MEDS ORDERED: INSULIN GLARGINE [LANTus] (100 UNITS/ML) SYG SC SCH (20:00)
[2019-01-08] MEDS: ACCU-CHEK XX SCH ×3 (02:00→20:23)
[2019-01-08 02:40] VITALS: BP 101/60; PULSE 87; RESP 18
[2019-01-08] MEDS: METOCLOPRAMIDE 10 MG INJ IV SCH ×3 (06:28→17:32)
[2019-01-08] MEDS: PIPER-TAZO 3.375 GM IV (PMX) 100 ML IVPB SCH ×3 (06:28→21:19)
[2019-01-08] MEDS: morphine 2 MG INJ IV PRN ×4 (06:57→21:27)
[2019-01-08 08:00] VITALS: BP 90/53; PULSE 91; RESP 18
[2019-01-08] MEDS: INSULIN ASPART [NOVOLOG] 3 ML PEN SC SCH ×7 (08:37→20:23)
[2019-01-08] MEDS: DOCUSATE SODIUM 100 MG CAP PO SCH ×2 (08:38→20:23)
[2019-01-08] MEDS: metFORMIN 500 MG TAB PO SCH (08:39)
--- NOTE | 2019-01-08 09:03 | PN ---
DATE: 01/07/2019 SUBJECTIVE: The patient's pain is better controlled, presently she continues to have high blood sugars. Gynecology reviewed Eli today. No further intervention is planned. They only recommended warm compresses. PHYSICAL EXAMINATION: VITAL SIGNS: Temperature 98.4, pulse 80, respirations 14, blood pressure 92/61, saturations 94% on room air. GENERAL: Patient continues to look anxious, but is in no distress. HEENT: Head is normocephalic without evidence of trauma. Pupils equal and reactive. CHEST: Clear to auscultation. CARDIOVASCULAR: S1 and S2. ABDOMEN: Soft, nontender. GENITOURINARY: Her vaginal area looks better today. There is definitely less erythema, swelling is also improved, remains very significantly tender though. Whitish fungal-looking discharge is improved. No obvious oozing. packing remains in place. EXTREMITIES: Lower extremities negative for edema. LABORATORY VALUES: I reviewed her CBC and her metabolic profile and I reviewed her blood glucose levels. IMPRESSION: A 38-year-old female who had presented to the Emergency Room, admitted by the gynecology team after she had presented with a white cellulitis and pain in her perineum. This is managed as follows: 1. Perineal cellulitis with global abscess, status post lancing and packing in the ER ear. DIRECTOR OF ATHLETICS following. A followup CT after ER drainage showed residual abscess, but at this time Lan Support Specialist recommended just warm compresses and continue with antibiotics. We will recommend repeat imaging maybe by tomorrow to ensure that this abscess is improving. 2. Uncontrolled diabetes mellitus with hemoglobin A1c of 13.9. Patient reports that she has been off hypoglycemics due to insurance issues. Blood sugars are still suboptimally controlled. I will adjust dosing of her medications and continue to monitor. 3. Pain secondary to #1. Daily regimen has been adjusted. Continue current regimen, per interventions per clinical course. Of note is that wound cultures are still pending, finding no growth. Will follow up tomorrow. Dictated By: ДМИТРИЙ DALTON MD BA/NTS Conf#: [id number] DID#: [id number] CC: EMILIANO VALENTE MD;*EndCC* MTDD
--- NOTE | 2019-01-08 11:47 | PN ---
Date/Time of Note Date/Time of Note DATE: 01/08/19 TIME: 11:43 Assessment/Plan VTE Prophylaxis Risk score (from Ns)>0 risk: 2 SCD applied (from Ns): No SCD contraindicated: low risk/ambulating Pharmacological prophylaxis: heparin Lines/Catheters IV [facility]ter [facility] ([facility] Peripheral IV Assessment/Plan Hospital Course Internal medicine consult for primary attending gynecology service Problems: (1) Abscess of right genital labia Status: Acute Comment: On antibiotics but there is still possibility there is a residual part of the abscess not yet drained. PREDICTIVE MAINTENANCE SPECIALIST to reevaluate as they are the primary attending on the case (2) Diabetes mellitus type 2, uncontrolled Status: Chronic Comment: Patient has an issue with the affordability of the medications. The insulin is extremely expensive. Metformin is an expensive and the oral sulfonylureas are in expensive. Need to try and transition over to this regimen even though is not ideal in an inpatient setting to get the patient in a position where they can manage their affairs as an outpatient. Please note we are trying to get her on Medi-Isaiah but I am working with the expectation that that might fall through the cracks again in the future Qualifiers: Glycemic state: with hyperglycemia Qualified Codes: E11.65 - Type 2 diabetes mellitus with hyperglycemia (3) Hepatic steatosis Status: Chronic Comment: Secondary to insulin resistance syndrome and type 2 diabetes Result Diagram: 01/08/19 0657 01/08/19 0657 Results 24hrs Laboratory Tests Test 01/07/19 12:26 01/07/19 17:16 01/07/19 20:46 01/08/19 02:40 Bedside Glucose 202 150 222 H 145 Test 01/08/19 06:57 01/08/19 07:54 White Blood Count 12.2 H Red Blood Count 3.81 L Hemoglobin 12.0 Hematocrit 35.3 L Mean Corpuscular Volume 92.7 Mean Corpuscular 31.5 Hemoglobin Mean Corpuscular 34.0 Hemoglobin Concent Red Cell Distribution 11.7 Width Platelet Count 323 Mean Platelet Volume 9.8 Immature Granulocytes % 0.600 H Neutrophils % 65.3 Lymphocytes % 24.9 Monocytes % 8.2 Eosinophils % 0.5 Basophils % 0.5 Nucleated Red Blood 0.0 Cells % Immature Granulocytes # 0.070 H Neutrophils # 7.9 H Lymphocytes # 3.0 H Monocytes # 1.0 H Eosinophils # 0.1 Basophils # 0.1 Nucleated Red Blood 0.0 Cells # Sodium Level 136 Potassium Level 3.7 Chloride Level 100 Carbon Dioxide Level 28 Anion Gap 8 Blood Urea Nitrogen 6 L Creatinine 0.39 L Est Glomerular Filtrat > 60 Rate mL/min Glucose Level 133 # Calcium Level 9.1 Total Bilirubin 0.4 Direct Bilirubin 0.00 Indirect Bilirubin 0.4 Aspartate Amino 26 Transf (AST/SGOT) Alanine 10 L Aminotransferase (ALT/SG PT) Alkaline Phosphatase 51 Total Protein 6.5 Albumin 3.4 Globulin 3.10 Albumin/Globulin Ratio 1.09 Bedside Glucose 185 Subjective 24 Hr Interval Summary Free Text/Dictation Please note this is an internal medicine consultation note gynecology is the primary attending service Patient reports that she is feeling a little bit better but still has pain and swelling. Patient reports that she was off of all diabetic medications except for metformin 500 twice a day due to financial issues. Constitutional: no complaints (Denies fevers chills or sweats) Respiratory: no complaints Cardiovascular: no complaints Gastrointestinal: no complaints Genitourinary: no complaints Exam/Review of Systems Exam Vitals Vital Signs Date Temp Pulse Resp B/P (MAP) Pulse Ox O2 O2 Flow FiO2 Time Delivery Rate 01/08/19 98.5 91 18 90/53 (65) 96 08:00 01/06/19 Room Air 14:21 Intake and Output 01/07/19 01/07/19 01/08/19 1414:59 22:59 06:59 IntakeIntake Total 100 ml 300 ml 300 ml BalanceBalance 100 ml 300 ml 300 ml Constitutional: alert, oriented Neck: supple, non-tender Respiratory: clear to auscultation, normal air movement Cardiovascular: regular rate and rhythm, nl pulses Gastrointestinal: soft, nl liver, spleen, non-tender Genitourinary - Female: other (Please see the PREDICTIVE MAINTENANCE SPECIALIST progress note) Results Results 24hrs Laboratory Tests Test 01/07/19 12:26 01/07/19 17:16 01/07/19 20:46 01/08/19 02:40 Bedside Glucose 202 150 222 H 145 Test 01/08/19 06:57 01/08/19 07:54 White Blood Count 12.2 H Red Blood Count 3.81 L Hemoglobin 12.0 Hematocrit 35.3 L Mean Corpuscular Volume 92.7 Mean Corpuscular 31.5 Hemoglobin Mean Corpuscular 34.0 Hemoglobin Concent Red Cell Distribution 11.7 Width Platelet Count 323 Mean Platelet Volume 9.8 Immature Granulocytes % 0.600 H Neutrophils % 65.3 Lymphocytes % 24.9 Monocytes % 8.2 Eosinophils % 0.5 Basophils % 0.5 Nucleated Red Blood 0.0 Cells % Immature Granulocytes # 0.070 H Neutrophils # 7.9 H Lymphocytes # 3.0 H Monocytes # 1.0 H Eosinophils # 0.1 Basophils # 0.1 Nucleated Red Blood 0.0 Cells # Sodium Level 136 Potassium Level 3.7 Chloride Level 100 Carbon Dioxide Level 28 Anion Gap 8 Blood Urea Nitrogen 6 L Creatinine 0.39 L Est Glomerular Filtrat > 60 Rate mL/min Glucose Level 133 # Calcium Level 9.1 Total Bilirubin 0.4 Direct Bilirubin 0.00 Indirect Bilirubin 0.4 Aspartate Amino 26 Transf (AST/SGOT) Alanine 10 L Aminotransferase (ALT/SG PT) Alkaline Phosphatase 51 Total Protein 6.5 Albumin 3.4 Globulin 3.10 Albumin/Globulin Ratio 1.09 Bedside Glucose 185 Medications Medication Current Medications Metformin HCl (Glucophage) 500 mg BID WITH MEALS PO Last administered on 01/08/19at 08:39; Admin Dose 500 MG; Start 01/05/19 at 08:00 Acetaminophen (Tylenol Tab) 650 mg Q4H PRN PO MILD PAIN(1-3)OR ELEVATED TEMP; Start 01/04/19 at 22:00 Miscellaneous Information 1 ea NOTE XX ; Start 01/04/19 at 22:00 Glucose (Glutose) 15 gm Q15M PRN PO DECREASED GLUCOSE; Start 01/04/19 at 22:00 Glucose (Glutose) 22.5 gm Q15M PRN PO DECREASED GLUCOSE; Start 01/04/19 at 22:00 Dextrose (D50w Syringe) 25 ml Q15M PRN IV DECREASED GLUCOSE; Start 01/04/19 at 22:00 Dextrose (D50w Syringe) 50 ml Q15M PRN IV DECREASED GLUCOSE; Start 01/04/19 at 22:00 Glucagon (Glucagen) 1 mg Q15M PRN IM DECREASED GLUCOSE; Start 01/04/19 at 22:00 Glucose (Glutose) 15 gm Q15M PRN BUCCAL DECREASED GLUCOSE; Start 01/04/19 at 22:00 Diagnostic Test (Pha) (Accu-Chek) 1 ea 02 XX Last administered on 01/07/19 02:39; Admin Dose 1 EA; Start 01/05/19 at 02:00 Insulin Aspart (Novolog Insulin Pen) NOVOLOG *MILD* ALGORITHM WITH MEALS BEDTIME SC Last administered on 01/08/19 08:37; Admin Dose 2 UNIT; Start 01/05/19 at 08:00 Fluconazole 100 ml @ 100 mls/hr Q24H IVPB Last administered on 01/07/19 15:22; Admin Dose 100 MLS/HR; Start 01/05/19 at 14:00 Morphine Sulfate (morphine) 2 mg Q3H PRN IV SEVERE PAIN LEVEL 7-10 Last administered on 01/08/19 06:57; Admin Dose 2 MG; Start 01/06/19 at 10:30 Acetaminophen/ Hydrocodone Bitart ([place] (5/325)) 1 tab Q6H PRN PO MODERATE PAIN LEVEL 4-6 Last administered on 01/07/19 17:21; Admin Dose 1 TAB; Start 01/06/19 at 10:30 Piperacillin Sod/ Tazobactam Sod 100 ml @ 25 mls/hr Q8 IVPB Last administered on 01/08/19 06:28; Admin Dose 25 MLS/HR; Start 01/06/19 at 16:15 Insulin Aspart (Novolog Insulin Pen) 6 unit WITH MEALS SC Last administered on 01/08/19 08:38; Admin Dose 6 UNIT; Start 01/07/19 at 12:00 Metoclopramide HCl (Reglan) 10 mg Q6 IV Last administered on 01/08/19 06:28; Admin Dose 10 MG; Start 01/07/19 at 09:30; Stop 01/09/19 at 09:29 Insulin Glargine (Lantus) 18 units DAILY@2000 SC Last administered on 01/07/19 20:52; Admin Dose 18 UNITS; Start 01/07/19 at 20:00 Ondansetron HCl (Zofran Inj) 4 mg Q6H PRN IV NAUSEA AND/OR VOMITING; Start 01/07/19 at 09:30 Docusate Sodium (Colace) 100 mg BID PO ; Start 01/07/19 at 09:30 ISIDRA ESTEVEZ MD January 08, 2019 11:46
[2019-01-08] MEDS: THIAMINE 100 MG TAB PO SCH (12:15)
[2019-01-08] MEDS: FLUCONAZOLE 200 MG (PMX) 100 ML IVPB SCH (13:39)
[2019-01-08 14:00] VITALS: BP 92/64; PULSE 91; RESP 18
[2019-01-08] MEDS: GLIMEPIRIDE 2 MG TAB PO SCH (17:32)
[2019-01-08] MEDS: metFORMIN 850 MG TAB PO SCH (17:32)
[2019-01-08] MEDS: INSULIN GLARGINE [LANTus] (100 UNITS/ML) SYG SC SCH (20:22)
[2019-01-08 20:26] VITALS: BP 93/62; PULSE 89; RESP 17
[2019-01-09] MEDS: METOCLOPRAMIDE 10 MG INJ IV SCH ×2 (00:36→06:11)
[2019-01-09] MEDS: ACCU-CHEK XX SCH ×5 (02:00→20:28)
[2019-01-09 03:02] VITALS: BP 85/53; PULSE 87; RESP 17
[2019-01-09] MEDS: PIPER-TAZO 3.375 GM IV (PMX) 100 ML IVPB SCH (06:11)
[2019-01-09] MEDS: DOCUSATE SODIUM 100 MG CAP PO SCH ×2 (07:31→20:14)
[2019-01-09 07:34] VITALS: BP 91/62; PULSE 80; RESP 17
[2019-01-09] MEDS: INSULIN ASPART [NOVOLOG] 3 ML PEN SC SCH ×4 (07:47→20:22)
[2019-01-09] MEDS: GLIMEPIRIDE 2 MG TAB PO SCH ×2 (07:50→17:45)
[2019-01-09] MEDS: metFORMIN 850 MG TAB PO SCH ×2 (07:50→17:46)
[2019-01-09] MEDS: THIAMINE 100 MG TAB PO SCH (07:51)
--- NOTE | 2019-01-09 10:29 | QN ---
Documentation Comment 38 yo female with DM and wide cellulitis on her perineum and right side of labia major ,improved but still is edematous and red VS stable WBc 12 Gen NAD Abd soft NT ND Genitalia Right labia major cellulitis --->Repeat CT scan --->Laborist needs to see her every day ->Diabetic control --->Consult with ID to add vancomycin to her regimen --->Repeat CT scan EMILIANO VALENTE M.D. January 09, 2019 10:29
[2019-01-09] MEDS ORDERED: VANCOMYCIN 1 GM (PMX) 250 ML IVPB SCH (10:30)
[2019-01-09] MEDS ORDERED: VANCOMYCIN IV PER PHARMACY XX SCH (11:00)
[2019-01-09] MEDS: morphine 2 MG INJ IV PRN ×2 (12:01→20:13)
[2019-01-09] MEDS ORDERED: VANCOMYCIN HCL 1.5 GM in SOD CHLORIDE 0.9% 250 ML IVPB SCH (12:30)
--- NOTE | 2019-01-09 13:44 | PN ---
Date/Time of Note Date/Time of Note DATE: 01/09/19 TIME: 13:42 Assessment/Plan VTE Prophylaxis Risk score (from Ns)>0 risk: 0 SCD applied (from Ns): No SCD contraindicated: low risk/ambulating Pharmacological prophylaxis: heparin Pharm contraindication: low risk/ambulating Lines/Catheters IV C[facility] (from [facility]): Peripheral IV Assessment/Plan Hospital Course Internal medicine consult for primary attending gynecology service Problems: (1) Abscess of right genital labia Status: Acute Comment: Patient has been seen by SURGICAL PHYSICIAN ASSISTANT primary. They have requested expansion of the antibiotic coverage and re-imaging study to verify that there is not residual abscess. (2) Complicated abscess Status: Acute Comment: As above. (3) Diabetes mellitus type 2, uncontrolled Status: Chronic Comment: Markedly improved control using a simplified regimen. Qualifiers: Glycemic state: with hyperglycemia Qualified Codes: E11.65 - Type 2 diabetes mellitus with hyperglycemia Result Diagram: 01/08/19 0657 01/08/19 0657 Results 24hrs Laboratory Tests Test 01/08/19 17:31 01/08/19 20:18 01/09/19 07:46 01/09/19 11:54 Bedside Glucose 187 119 95 118 Subjective 24 Hr Interval Summary Free Text/Dictation Patient reports that she is still having swelling but less pain. Constitutional: no complaints Respiratory: no complaints Cardiovascular: no complaints Gastrointestinal: no complaints Genitourinary: no complaints Exam/Review of Systems Exam Vitals Vital Signs Date Temp Pulse Resp B/P (MAP) Pulse Ox O2 O2 Flow FiO2 Time Delivery Rate 01/09/19 98.3 80 17 91/62 (72) 97 07:34 01/06/19 Room Air 14:21 Intake and Output 01/08/19 01/08/19 01/09/19 1515:00 23:00 07:00 IntakeIntake Total 100 ml 100 ml 100 ml BalanceBalance 100 ml 100 ml 100 ml Constitutional: alert, oriented Neck: supple, non-tender Respiratory: clear to auscultation, normal air movement Cardiovascular: regular rate and rhythm, nl pulses Results Results 24hrs Laboratory Tests Test 01/08/19 17:31 01/08/19 20:18 01/09/19 07:46 01/09/19 11:54 Bedside Glucose 187 119 95 118 Medications Medication Current Medications Acetaminophen (Tylenol Tab) 650 mg Q4H PRN PO MILD PAIN(1-3)OR ELEVATED TEMP; Start 01/04/19 at 22:00 Miscellaneous Information 1 ea NOTE XX ; Start 01/04/19 at 22:00 Glucose (Glutose) 15 gm Q15M PRN PO DECREASED GLUCOSE; Start 01/04/19 at 22:00 Glucose (Glutose) 22.5 gm Q15M PRN PO DECREASED GLUCOSE; Start 01/04/19 at 22:00 Dextrose (D50w Syringe) 25 ml Q15M PRN IV DECREASED GLUCOSE; Start 01/04/19 at 22:00 Dextrose (D50w Syringe) 50 ml Q15M PRN IV DECREASED GLUCOSE; Start 01/04/19 at 22:00 Glucagon (Glucagen) 1 mg Q15M PRN IM DECREASED GLUCOSE; Start 01/04/19 at 22:00 Glucose (Glutose) 15 gm Q15M PRN BUCCAL DECREASED GLUCOSE; Start 01/04/19 at 22:00 Diagnostic Test (Pha) (Accu-Chek) 1 ea 02 XX Last administered on 01/07/19at 02:39; Admin Dose 1 EA; Start 01/05/19 at 02:00 Insulin Aspart (Novolog Insulin Pen) NOVOLOG *MILD* ALGORITHM WITH MEALS BEDTIME SC Last administered on 01/08/19 17:36; Admin Dose 2 UNIT; Start 01/05/19 at 08:00 Fluconazole 100 ml @ 100 mls/hr Q24H IVPB Last administered on 01/08/19at 13:39; Admin Dose 100 MLS/HR; Start 01/05/19 at 14:00 Morphine Sulfate (morphine) 2 mg Q3H PRN IV SEVERE PAIN LEVEL 7-10 Last administered on 01/09/19 12:01; Admin Dose 2 MG; Start 01/06/19 at 10:30 Acetaminophen/ Hydrocodone Bitart ([place] (5/325)) 1 tab Q6H PRN PO MODERATE PAIN LEVEL 4-6 Last administered on 01/07/19 17:21; Admin Dose 1 TAB; Start 01/06/19 at 10:30 Piperacillin Sod/ Tazobactam Sod 100 ml @ 25 mls/hr Q8 IVPB Last administered on 01/09/19 06:11; Admin Dose 25 MLS/HR; Start 01/06/19 at 16:15 Ondansetron HCl (Zofran Inj) 4 mg Q6H PRN IV NAUSEA AND/OR VOMITING; Start 01/07/19 at 09:30 Docusate Sodium (Colace) 100 mg BID PO ; Start 01/07/19 at 09:30 Insulin Glargine (Lantus) 10 units DAILY@2000 SC Last administered on 01/08/19at 20:22; Admin Dose 10 UNITS; Start 01/08/19 at 20:00 Metformin HCl (Glucophage) 850 mg BID WITH MEALS PO Last administered on 01/09/19at 07:50; Admin Dose 850 MG; Start 01/08/19 at 18:00 Thiamine HCl (Vitamin B1) 100 mg DAILY PO Last administered on 01/09/19 07:51; Admin Dose 100 MG; Start 01/08/19 at 12:00 Glimepiride (Amaryl) 2 mg AC BREAKFAST DINNER PO Last administered on 01/09/19at 07:50; Admin Dose 2 MG; Start 01/08/19 at 17:30 Diagnostic Test (Pha) (Accu-Chek) 1 ea AC MEALS AND BEDTIME XX Last administered on 01/08/19at 20:23; Admin Dose 1 EA; Start 01/08/19 at 17:30 Vancomycin HCl (Vanco Iv Per Pharmacy) VANCOMYCIN PER PHARMACY PER PROTOCOL XX ; Start 01/09/19 at 11:00 Vancomycin HCl 1.5 gm/Sodium Chloride 250 ml @ 83.333 mls/ hr NOW IVPB Last administered on 01/09/19at 13:05; Admin Dose 83.333 MLS/HR; Start 01/09/19 at 12:30; Stop 01/09/19 at 15:29 Vancomycin/Sodium Chloride 250 ml @ 125 mls/hr Q12H IVPB ; Start 01/09/19 at 23:00 ISIDRA ESTEVEZ MD January 09, 2019 13:44
[2019-01-09] MEDS: HYDROCODONE/APAP (5/325) TAB PO PRN ×2 (14:16→23:35)
[2019-01-09 15:11] VITALS: BP 81/52; PULSE 84; RESP 18
--- NOTE | 2019-01-09 15:29 | CONS ---
DATE OF ADMISSION: 01/06/2019 DATE OF CONSULTATION: 01/09/2019 TYPE OF CONSULTATION: Infectious disease. REASON FOR CONSULTATION: Antibiotic management. HISTORY OF PRESENT ILLNESS: Eli Harris is a 38-year-old female admitted on 01/04/2019. She has a history of diabetes mellitus and cellulitis in the perineal area and the right side of th e labia majora extending to the thigh crease. The abscess was drained by the Emergency Room provider and packed. The feeling was there was a possibility that the abscess was not completely drained. T he area is very swollen and traumatized and there is widespread cellulitis. The patient was admitted for antibiotic and pain management and Dr. Valente and Dr. Godfrey of [facility] were caring for her. The patient is diabetic. PAST SURGICAL HISTORY: Noncontributory. FAMILY HISTORY: Noncontributory. SOCIAL HISTORY: She does not smoke, drink or abuse drugs. MEDICATIONS: Per chart. REVIEW OF SYSTEMS: As per HPI. PHYSICAL EXAMINATION: GENERAL: The patient is alert, responsive, in no acute distress. VITAL SIGNS: Stable. HOSPITAL COURSE: Patient was admitted with a white count of 13.1, H and H 14.3 and 41.6, platelet co unt 329,000. On the 4th, white count was 12.2. BUN and creatinine was 6/0.39. AST 26, ALT 10. Per wong cultures showed Jaquelin albicans, Jaquelin glabrata and coagulase negative staph. The patient i s on: 1. Vancomycin. 2. Zosyn. 3. Fluconazole. A CT scan of the abdomen and pelvis on admission showed subcutaneous edema througho ut the right labia, possibly indicating cellulitis suspicion of a 3 cm loculated fluid collection in the lateral aspect of the right labia. Abscess is not excluded, hyperdense material seen at the medi al aspect right labia. Currently, the area itself on the perineum in the right side of the midfoot l abia majora still edematous and red. PHYSICAL EXAMINATION: SKIN: Without generalized rash. HEENT: Within normal limits. NECK: Supple. LYMPH NODES: None palpable. CHEST: Decreased breath sounds at the bases. HEART: Without murmur or gallop. ABDOMEN: Soft, nontender, without organosplenomegaly or masses. SKIN: The perineal area is indurated and red on the right side. EXTREMITIES: Without cyanosis, clubbing or edema. RECTAL AND GENITAL: As outlined. NEUROLOGIC: No focal neurological abnormality. IMPRESSION AND PLAN: Patient currently on vancomycin, Zosyn and Fluconazole to cover Jaquelin glabrat a, Jaquelin albicans and coagulase negative staph. We will continue this regimen. I will dictate my findings to FL[facility] COORDINATOR, to the hospitalists, Dr. Henao, Dr. Valente. Dictated By: DAVID POWERS MD, JD/NTS Conf#: [id number] DID#: [id number] CC: EMILIANO VALENTE MD;*EndCC*
[2019-01-09] MEDS: DOXYCYCLINE 100 MG TAB PO SCH (20:14)
[2019-01-09] MEDS: FLUCONAZOLE 200 MG (PMX) 100 ML IVPB SCH (20:15)
[2019-01-09] MEDS: INSULIN GLARGINE [LANTus] (100 UNITS/ML) SYG SC SCH (20:27)
[2019-01-09] MEDS: VANCOMYCIN 750 MG (PMX) 250 ML IVPB SCH (23:29)
[2019-01-10] MEDS: ACCU-CHEK XX SCH ×5 (02:00→21:11)
[2019-01-10 02:10] VITALS: BP 90/61; PULSE 78; RESP 16
[2019-01-10 07:41] VITALS: BP 108/65; PULSE 66; RESP 20
[2019-01-10] MEDS: INSULIN ASPART [NOVOLOG] 3 ML PEN SC SCH ×4 (08:00→21:00)
[2019-01-10] MEDS: HYDROCODONE/APAP (5/325) TAB PO PRN ×2 (08:23→20:12)
[2019-01-10] MEDS: DOXYCYCLINE 100 MG TAB PO SCH (08:23)
[2019-01-10] MEDS: THIAMINE 100 MG TAB PO SCH (08:23)
[2019-01-10] MEDS: GLIMEPIRIDE 2 MG TAB PO SCH ×2 (08:23→17:08)
[2019-01-10] MEDS: DOCUSATE SODIUM 100 MG CAP PO SCH ×2 (08:23→20:11)
[2019-01-10] MEDS: metFORMIN 850 MG TAB PO SCH ×2 (08:24→17:08)
--- NOTE | 2019-01-10 08:24 | QN ---
Documentation Comment 38 yo female with DM and wide cellulitis on her perineum and right side of labia major ,improved but still is edematous and red VS stable Gen NAD Abd soft NT ND Genitalia Right labia major cellulitis CT doesn't show any clear collections --->CBC --->Laborist needs to see her every day ->Diabetic control --->Consult with ID to add vancomycin to her regimen EMILIANO VALENTE M.D. January 10, 2019 08:24
[2019-01-10] MEDS: morphine 2 MG INJ IV PRN ×2 (11:15→21:50)
[2019-01-10] MEDS: VANCOMYCIN 750 MG (PMX) 250 ML IVPB SCH (11:16)
--- NOTE | 2019-01-10 13:18 | CONS ---
Assessment/Plan Assessment/Plan Hospital Course (Demo Recall) Patient is awake looks comfortable no fevers overnight WBC today 10.7 no shift no bands BUN 6 creatinine 0.39 Wound culture grew Jaquelin albicans and glabrata and coag negative staph species Antimicrobials: Doxycycline vancomycin fluconazole Physical examination obese well-developed middle-aged woman who is alert in no distress. Head atraumatic normocephalic neck is supple chest rise symmetrical breath sounds clear heart S1-S2 abdomen soft bowel sounds present extremities without cyanosis Assessment: 1. Resolving perineal cellulitis 2. Status post vulvar abscess drainage 3. Uncontrolled diabetes Plan: Patient remains stable, we will change antibiotics to clindamycin, continue fluconazole Consultation Date/Type/Reason Admit Date/Time January 06, 2019 at 08:40 Initial Consult Date 01/04/19 Type of Consult id Requesting Provider: SARA WEBB MD Date/Time of Note DATE: 01/10/19 TIME: 13:17 Exam/Review of Systems Exam Vitals Vital Signs Date Temp Pulse Resp B/P (MAP) Pulse Ox O2 O2 Flow FiO2 Time Delivery Rate 01/10/19 98.4 66 20 108/65 98 Room Air 07:41 (79) Intake and Output 01/09/19 01/09/19 01/10/19 1515:00 23:00 07:00 IntakeIntake Total 100 ml 790 ml 250 ml BalanceBalance 100 ml 790 ml 250 ml Results Result Diagram: 01/10/19 0833 01/08/19 0657 Results 24hrs Laboratory Tests Test 01/09/19 17:05 01/09/19 20:21 01/10/19 08:13 01/10/19 08:33 Bedside Glucose 113 142 91 White Blood Count 10.7 Red Blood Count 3.91 L Hemoglobin 12.1 Hematocrit 36.4 L Mean Corpuscular Volume 93.1 Mean Corpuscular 30.9 Hemoglobin Mean Corpuscular 33.2 Hemoglobin Concent Red Cell Distribution 11.8 Width Platelet Count 345 Mean Platelet Volume 9.8 Immature Granulocytes % 0.300 Neutrophils % 58.6 Lymphocytes % 29.0 Monocytes % 10.0 Eosinophils % 1.4 Basophils % 0.7 Nucleated Red Blood 0.0 Cells % Immature Granulocytes # 0.030 Neutrophils # 6.3 Lymphocytes # 3.1 H Monocytes # 1.1 H Eosinophils # 0.2 Basophils # 0.1 Nucleated Red Blood 0.0 Cells # Test 01/10/19 12:37 Bedside Glucose 127 Medications Medication Current Medications Acetaminophen (Tylenol Tab) 650 mg Q4H PRN PO MILD PAIN(1-3)OR ELEVATED TEMP; Start 01/04/19 at 22:00 Miscellaneous Information 1 ea NOTE XX ; Start 01/04/19 at 22:00 Glucose (Glutose) 15 gm Q15M PRN PO DECREASED GLUCOSE; Start 01/04/19 at 22:00 Glucose (Glutose) 22.5 gm Q15M PRN PO DECREASED GLUCOSE; Start 01/04/19 at 22:0 0 Dextrose (D50w Syringe) 25 ml Q15M PRN IV DECREASED GLUCOSE; Start 01/04/19 at 22:00 Dextrose (D50w Syringe) 50 ml Q15M PRN IV DECREASED GLUCOSE; Start 01/04/19 at 22:00 Glucagon (Glucagen) 1 mg Q15M PRN IM DECREASED GLUCOSE; Start 01/04/19 at 22:00 Glucose (Glutose) 15 gm Q15M PRN BUCCAL DECREASED GLUCOSE; Start 01/04/19 at 22:00 Diagnostic Test (Pha) (Accu-Chek) 1 ea 02 XX Last administered on 01/07/19at 02:39; Admin Dose 1 EA; Start 01/05/19 at 02:00 Insulin Aspart (Novolog Insulin Pen) NOVOLOG *MILD* ALGORITHM WITH MEALS BEDTIME SC Last administered on 01/08/19at 17:36; Admin Dose 2 UNIT; Start 01/05/19 at 08:00 Fluconazole 100 ml @ 100 mls/hr Q24H IVPB Last administered on 01/09/19at 20:15; Admin Dose 100 MLS/HR; Start 01/05/19 at 14:00 Morphine Sulfate (morphine) 2 mg Q3H PRN IV SEVERE PAIN LEVEL 7-10 Last administered on 01/10/19at 11:15; Admin Dose 2 MG; Start 01/06/19 at 10:30 Acetaminophen/ Hydrocodone Bitart ([place] (5/325)) 1 tab Q6H PRN PO MODERATE PAIN LEVEL 4-6 Last administered on 01/10/19at 08:23; Admin Dose 1 TAB; Start 01/06/19 at 10:30 Ondansetron HCl (Zofran Inj) 4 mg Q6H PRN IV NAUSEA AND/OR VOMITING; Start 01/07/19 at 09:30 Docusate Sodium (Colace) 100 mg BID PO Last administered on 01/10/19 08:23; Admin Dose 100 MG; Start 01/07/19 at 09:30 Insulin Glargine (Lantus) 10 units DAILY@2000 SC Last administered on 01/09/19 20:27; Admin Dose 10 UNITS; Start 01/08/19 at 20:00 Metformin HCl (Glucophage) 850 mg BID WITH MEALS PO Last administered on 01/10/19 08:24; Admin Dose 850 MG; Start 01/08/19 at 18:00 Thiamine HCl (Vitamin B1) 100 mg DAILY PO Last administered on 01/10/19 08:23; Admin Dose 100 MG; Start 01/08/19 at 12:00 Glimepiride (Amaryl) 2 mg AC BREAKFAST DINNER PO Last administered on 01/10/19 08:23; Admin Dose 2 MG; Start 01/08/19 at 17:30 Diagnostic Test (Pha) (Accu-Chek) 1 ea AC MEALS AND BEDTIME XX Last administered on 01/10/19 11:30; Admin Dose 1 EA; Start 01/08/19 at 17:30 Vancomycin HCl (Vanco Iv Per Pharmacy) VANCOMYCIN PER PHARMACY PER PROTOCOL XX ; Start 01/09/19 at 11:00 Vancomycin/Sodium Chloride 250 ml @ 125 mls/hr Q12H IVPB Last administered on 01/10/19 11:16; Admin Dose 125 MLS/HR; Start 01/09/19 at 23:00 Doxycycline Hyclate (Vibramycin) 100 mg BID PO Last administered on 01/10/19 08:23; Admin Dose 100 MG; Start 01/09/19 at 21:00; Stop 01/19/19 at 20:59 CHAPIN GARCÍA NP January 10, 2019 13:18
[2019-01-10] MEDS: FLUCONAZOLE 200 MG (PMX) 100 ML IVPB SCH (13:57)
[2019-01-10 14:21] VITALS: BP 87/56; PULSE 83; RESP 18
--- NOTE | 2019-01-10 14:26 | CONS ---
Assessment/Plan Assessment/Plan Hospital Course (Demo Recall) SUBJECTIVE: Lying in bed comfortably. No fevers, chills. No further vaginal/vulvar discharges reported. OBJECTIVE: Vital signs-see below PHYSICAL EXAM: Constitutional: Adequately built,not in acute distress. HEENT: Head atraumatic and normocephalic. Eyes: Extraocular muscles intact. Anicteric sclerae. Pupils equal bilaterally, reactive to light. NECK: Supple without lymph node. CHEST: Clear and good breath sounds equally. No wheezing. No rhonchi. HEART: S1, S2. Regular rate and rhythm. ABDOMEN: Soft/non tender with no rebound tenderness. Bowel sounds were present. EXTREMITIES: No cyanosis, clubbing or edema. NEUROLOGIC: Alert and oriented x3. No focal deficit. No sensory deficit. PSYCHOSOCIAL: No signs of depression. INTEGUMENTARY: No open wounds. ASSESSMENT AND PLAN: Abscess of right genital labia -Repeat imaging showed no residual abscess. ID managing antimicrobials. \ Diabetes mellitus type 2, uncontrolled -stable -recommend Amaryl and metformin on DC DISP:Patient stable from medicine stand point. Abx managed by ID.We will sign off. I have given scripts for DM agents for outpt. please reconsult for any medical issues. patient was seen in collaboration with Consultation Date/Type/Reason Admit Date/Time January 06, 2019 at 08:40 Initial Consult Date 01/04/19 Requesting Provider: SARA WEBB MD Date/Time of Note DATE: 01/10/19 TIME: 14:23 Exam/Review of Systems Exam Vitals Vital Signs Date Temp Pulse Resp B/P (MAP) Pulse Ox O2 O2 Flow FiO2 Time Delivery Rate 01/10/19 98.4 66 20 108/65 98 Room Air 07:41 (79) Intake and Output 01/09/19 01/09/19 01/10/19 1515:00 23:00 07:00 IntakeIntake Total 100 ml 790 ml 250 ml BalanceBalance 100 ml 790 ml 250 ml Results Result Diagram: 01/10/19 0833 01/08/19 0657 Results 24hrs Laboratory Tests Test 01/09/19 17:05 01/09/19 20:21 01/10/19 08:13 01/10/19 08:33 Bedside Glucose 113 142 91 White Blood Count 10.7 Red Blood Count 3.91 L Hemoglobin 12.1 Hematocrit 36.4 L Mean Corpuscular Volume 93.1 Mean Corpuscular 30.9 Hemoglobin Mean Corpuscular 33.2 Hemoglobin Concent Red Cell Distribution 11.8 Width Platelet Count 345 Mean Platelet Volume 9.8 Immature Granulocytes % 0.300 Neutrophils % 58.6 Lymphocytes % 29.0 Monocytes % 10.0 Eosinophils % 1.4 Basophils % 0.7 Nucleated Red Blood 0.0 Cells % Immature Granulocytes # 0.030 Neutrophils # 6.3 Lymphocytes # 3.1 H Monocytes # 1.1 H Eosinophils # 0.2 Basophils # 0.1 Nucleated Red Blood 0.0 Cells # Test 01/10/19 12:37 Bedside Glucose 127 Medications Medication Current Medications Acetaminophen (Tylenol Tab) 650 mg Q4H PRN PO MILD PAIN(1-3)OR ELEVATED TEMP; Start 01/04/19 at 22:00 Miscellaneous Information 1 ea NOTE XX ; Start 01/04/19 at 22:00 Glucose (Glutose) 15 gm Q15M PRN PO DECREASED GLUCOSE; Start 01/04/19 at 22:00 Glucose (Glutose) 22.5 gm Q15M PRN PO DECREASED GLUCOSE; Start 01/04/19 at 22:00 Dextrose (D50w Syringe) 25 ml Q15M PRN IV DECREASED GLUCOSE; Start 01/04/19 at 22:00 Dextrose (D50w Syringe) 50 ml Q15M PRN IV DECREASED GLUCOSE; Start 01/04/19 at 22:00 Glucagon (Glucagen) 1 mg Q15M PRN IM DECREASED GLUCOSE; Start 01/04/19 at 22:00 Glucose (Glutose) 15 gm Q15M PRN BUCCAL DECREASED GLUCOSE; Start 01/04/19 at 22:00 Diagnostic Test (Pha) (Accu-Chek) 1 ea 02 XX Last administered on 01/07/19at 02:39; Admin Dose 1 EA; Start 01/05/19 at 02:00 Insulin Aspart (Novolog Insulin Pen) NOVOLOG *MILD* ALGORITHM WITH MEALS BEDTIME SC Last administered on 01/08/19at 17:36; Admin Dose 2 UNIT; Start 01/05/19 at 08:00 Fluconazole 100 ml @ 100 mls/hr Q24H IVPB Last administered on 01/10/19at 13:57; Admin Dose 100 MLS/HR; Start 01/05/19 at 14:00 Morphine Sulfate (morphine) 2 mg Q3H PRN IV SEVERE PAIN LEVEL 7-10 Last administered on 01/10/19 11:15; Admin Dose 2 MG; Start 01/06/19 at 10:30 Acetaminophen/ Hydrocodone Bitart ([place] (5/325)) 1 tab Q6H PRN PO MODERATE PAIN LEVEL 4-6 Last administered on 01/10/19 08:23; Admin Dose 1 TAB; Start at 10:30 Ondansetron HCl (Zofran Inj) 4 mg Q6H PRN IV NAUSEA AND/OR VOMITING; Start 01/07/19 at 09:30 Docusate Sodium (Colace) 100 mg BID PO Last administered on 01/10/19 08:23; Admin Dose 100 MG; Start 01/07/19 at 09:30 Insulin Glargine (Lantus) 10 units DAILY@2000 SC Last administered on 01/09/19 20:27; Admin Dose 10 UNITS; Start 01/08/19 at 20:00 Metformin HCl (Glucophage) 850 mg BID WITH MEALS PO Last administered on 01/10/19 08:24; Admin Dose 850 MG; Start 01/08/19 at 18:00 Thiamine HCl (Vitamin B1) 100 mg DAILY PO Last administered on 01/10/19 08:23; Admin Dose 100 MG; Start 01/08/19 at 12:00 Glimepiride (Amaryl) 2 mg AC BREAKFAST DINNER PO Last administered on 01/10/19 08:23; Admin Dose 2 MG; Start 01/08/19 at 17:30 Diagnostic Test (Pha) (Accu-Chek) 1 ea AC MEALS AND BEDTIME XX Last administered on 01/10/19 11:30; Admin Dose 1 EA; Start 01/08/19 at 17:30 Clindamycin HCl/ Dextrose 50 ml @ 50 mls/hr Q8 IVPB ; Start 01/10/19 at 14:00 ADELINE DIAZ NP January 10, 2019 14:26
[2019-01-10] MEDS: CLINDAMYCIN 600 MG/D5W (PMX) 50 ML IVPB SCH ×2 (15:13→21:47)
[2019-01-10 19:36] VITALS: BP 99/55; PULSE 80; RESP 18
[2019-01-10] MEDS: INSULIN GLARGINE [LANTus] (100 UNITS/ML) SYG SC SCH ×2 (20:00→20:51)
[2019-01-11] MEDS: ACCU-CHEK XX SCH ×5 (02:00→21:00)
[2019-01-11 02:15] VITALS: BP 101/65; PULSE 66; RESP 18
[2019-01-11] MEDS: CLINDAMYCIN 600 MG/D5W (PMX) 50 ML IVPB SCH ×3 (05:56→22:03)
[2019-01-11] MEDS: GLIMEPIRIDE 2 MG TAB PO SCH ×2 (06:55→17:11)
[2019-01-11 07:23] VITALS: BP 107/65; PULSE 72; RESP 18
[2019-01-11] MEDS: INSULIN ASPART [NOVOLOG] 3 ML PEN SC SCH ×4 (08:00→21:00)
--- NOTE | 2019-01-11 08:23 | QN ---
Documentation Comment 38 yo female with DM admitted with right vulvar abscess status post drainage by ED -Repeat imaging showed no residual abscess. -ID managing antimicrobials; Currently on clindamycin 600 mg every 8 hours and Diflucan 200 mg every 24 hours Diabetes mellitus type 2 stable VS - Last 72 Hours, by Label Date Temp Pulse Resp B/P (MAP) Pulse Ox O2 O2 Flow FiO2 Time Delivery Rate 01/11/19 97.7 72 18 107/65 98 07:23 (79) 01/11/19 98.0 66 18 101/65 97 02:15 (77) 01/10/19 98.1 80 18 99/55 (70) 97 19:36 01/10/19 97.9 83 18 87/56 (66) 97 Room Air 14:21 01/10/19 98.4 66 20 108/65 98 Room Air 07:41 (79) 01/10/19 98.4 78 16 90/61 (71) 96 02:10 01/09/19 98.0 84 18 81/52 (62) 98 15:11 01/09/19 98.3 80 17 91/62 (72) 97 07:34 01/09/19 99.0 87 17 85/53 (64) 94 03:02 01/08/19 98.2 89 17 93/62 (72) 96 20:26 01/08/19 98.8 91 18 92/64 (73) 96 14:00 Hematology - 72 Hrs Test 01/10/19 08:33 01/11/19 08:42 Hematocrit 36.4 % (37.0-47.0) L 36.9 % (37.0-47.0) L Hemoglobin 12.1 g/dl (12.0-16.0) 12.4 g/dl (12.0-16.0) Mean Corpuscular 30.9 pg (29.0-33.0) 30.9 pg (29.0-33.0) Hemoglobin Mean Corpuscular 33.2 g/dl (32.0-37.0) 33.6 g/dl (32.0-37.0) Hemoglobin Concent Mean Corpuscular Volume 93.1 fl (82.0-101.0) 92.0 fl (82.0-101.0) Mean Platelet Volume 9.8 fl (7.4-10.4) 9.3 fl (7.4-10.4) Platelet Count 345 10^3/UL (140-415) 384 10^3/UL (140-415) Red Blood Count 3.91 10^6/ul (4.20-5.40) 4.01 10^6/ul (4.20-5.40) L L Red Cell Distribution 11.8 % (11.5-14.5) 11.7 % (11.5-14.5) Width White Blood Count 10.7 10^3/ul (4.8-10.8) 9.6 10^3/ul (4.8-10.8) Chemistry Test 01/08/19 12:15 01/08/19 17:31 01/08/19 20:18 01/09/19 07:46 Bedside 170 187 119 95 Glucose mg/dL (70-220) mg/dL (70-220) mg/dL (70-220) mg/dL (70-220) Test 01/09/19 11:54 01/09/19 17:05 01/09/19 20:21 01/10/19 08:13 Bedside 118 113 142 91 Glucose mg/dL (70-220) mg/dL (70-220) mg/dL (70-220) mg/dL (70-220) Test 01/10/19 12:37 01/10/19 17:07 01/10/19 20:10 01/11/19 06:54 Bedside 127 139 177 133 Glucose mg/dL (70-220) mg/dL (70-220) mg/dL (70-220) mg/dL (70-220) Test 01/11/19 08:25 01/11/19 08:42 Bedside 119 Glucose mg/dL (70-220) Sodium Level 140 mmol/L (135-14 4) Potassium 4.1 Level mmol/L (3.5-5. 1) Chloride Level 103 mmol/L (97-110 ) Carbon Dioxide 28 Level mmol/L (21-31) Anion Gap 9 (5-13) Blood Urea 8 mg/dl Nitrogen (7-20) Creatinine 0.44 mg/dl (0.44-1. 00) Est Glomerular > 60 Filtrat mL/min (>60) Rate mL/min Glucose Level 127 mg/dl (70-220) Calcium Level 9.6 mg/dl (8.4-10. 2) Total 0.3 Bilirubin mg/dl (0.2-1.3 ) Direct 0.00 Bilirubin mg/dl (0.00-0. 20) Indirect 0.3 Bilirubin mg/dl (0-1.1) Aspartate Amino 39 Transf (AST/SGO IU/L (15-46) T) Alanine 11 Aminotransferas IU/L (13-69) e (ALT/SGPT) L Alkaline 61 Phosphatase IU/L (42-121) Total Protein 7.2 g/dl (6.1-8.1) Albumin 3.7 g/dl (3.3-4.9) Globulin 3.50 g/dl (1.3-3.2) H Albumin/Globuli 1.[address] doesn't show any clear collections Gen NAD Abd soft NT ND Genitalia Right labia major cellulitis Repeat wound culture was obtained today Assessment and plan CBC, CMP ordered today Repeat wound culture was done today (R/O MRSA) Wound care management consultation was requested Infectious disease is managing antibiotics Hospitalist is managing diabetes MAKAYLA LUCERO MD January 11, 2019 08:23
[2019-01-11] MEDS: morphine 2 MG INJ IV PRN ×3 (08:25→17:32)
[2019-01-11] MEDS: metFORMIN 850 MG TAB PO SCH ×2 (08:25→17:11)
[2019-01-11] MEDS: THIAMINE 100 MG TAB PO SCH (08:25)
[2019-01-11] MEDS: DOCUSATE SODIUM 100 MG CAP PO SCH ×2 (08:30→20:18)
--- NOTE | 2019-01-11 11:42 | CONS ---
Assessment/Plan Assessment/Plan Hospital Course (Demo Recall) Patient is awake looks comfortable no fevers overnight WBC today 10.7 no shift no bands BUN 6 creatinine 0.39 Wound culture grew Jaquelin albicans and glabrata and coag negative staph species Antimicrobials: Clindamycin fluconazole Physical examination obese well-developed middle-aged woman who is alert in no distress. Head atraumatic normocephalic neck is supple chest rise symmetrical breath sounds clear heart S1-S2 abdomen soft bowel sounds present extremities without cyanosis Assessment: 1. Resolving perineal cellulitis 2. Status post vulvar abscess drainage 3. Uncontrolled diabetes Plan: Patient remains stable, continue abx, anticipate dc on oral Clindamycin and fluconazole Consultation Date/Type/Reason Admit Date/Time January 06, 2019 at 08:40 Initial Consult Date 01/04/19 Type of Consult id Requesting Provider: SARA WEBB MD Date/Time of Note DATE: 01/11/19 TIME: 11:41 Exam/Review of Systems Exam Vitals Vital Signs Date Temp Pulse Resp B/P (MAP) Pulse Ox O2 O2 Flow FiO2 Time Delivery Rate 01/11/19 97.7 72 18 107/65 98 07:23 (79) 01/10/19 Room Air 14:21 Intake and Output 01/10/19 01/10/19 01/11/19 1515:00 23:00 07:00 IntakeIntake Total 1670 ml 340 ml 50 ml BalanceBalance 1670 ml 340 ml 50 ml Results Result Diagram: 01/11/19 0842 01/11/19 0842 Results 24hrs Laboratory Tests Test 01/10/19 12:37 01/10/19 17:07 01/10/19 20:10 01/11/19 06:54 Bedside Glucose 127 139 177 133 Test 01/11/19 08:25 01/11/19 08:42 Bedside Glucose 119 White Blood Count 9.6 Red Blood Count 4.01 L Hemoglobin 12.4 Hematocrit 36.9 L Mean Corpuscular Volume 92.0 Mean Corpuscular 30.9 Hemoglobin Mean Corpuscular 33.6 Hemoglobin Concent Red Cell Distribution 11.7 Width Platelet Count 384 Mean Platelet Volume 9.3 Immature Granulocytes % 0.600 H Neutrophils % 63.2 Lymphocytes % 24.6 Monocytes % 9.6 Eosinophils % 1.5 Basophils % 0.5 Nucleated Red Blood 0.0 Cells % Immature Granulocytes # 0.060 H Neutrophils # 6.1 Lymphocytes # 2.4 Monocytes # 0.9 Eosinophils # 0.1 Basophils # 0.1 Nucleated Red Blood 0.0 Cells # Sodium Level 140 Potassium Level 4.1 Chloride Level 103 Carbon Dioxide Level 28 Anion Gap 9 Blood Urea Nitrogen 8 Creatinine 0.44 Est Glomerular Filtrat > 60 Rate mL/min Glucose Level 127 Calcium Level 9.6 Total Bilirubin 0.3 Direct Bilirubin 0.00 Indirect Bilirubin 0.3 Aspartate Amino 39 Transf (AST/SGOT) Alanine 11 L Aminotransferase (ALT/SG PT) Alkaline Phosphatase 61 Total Protein 7.2 Albumin 3.7 Globulin 3.50 H Albumin/Globulin Ratio 1.05 Medications Medication Current Medications Acetaminophen (Tylenol Tab) 650 mg Q4H PRN PO MILD PAIN(1-3)OR ELEVATED TEMP; Start 01/04/19 at 22:00 Miscellaneous Information 1 ea NOTE XX ; Start 01/04/19 at 22:00 Glucose (Glutose) 15 gm Q15M PRN PO DECREASED GLUCOSE; Start 01/04/19 at 22:00 Glucose (Glutose) 22.5 gm Q15M PRN PO DECREASED GLUCOSE; Start 01/04/19 at 22:00 Dextrose (D50w Syringe) 25 ml Q15M PRN IV DECREASED GLUCOSE; Start 01/04/19 at 22:00 Dextrose (D50w Syringe) 50 ml Q15M PRN IV DECREASED GLUCOSE; Start 01/04/19 at 22:00 Glucagon (Glucagen) 1 mg Q15M PRN IM DECREASED GLUCOSE; Start 01/04/19 at 22:00 Glucose (Glutose) 15 gm Q15M PRN BUCCAL DECREASED GLUCOSE; Start 01/04/19 at 22:00 Diagnostic Test (Pha) (Accu-Chek) 1 ea 02 XX Last administered on 01/07/19at 02:39; Admin Dose 1 EA; Start 01/05/19 at 02:00 Insulin Aspart (Novolog Insulin Pen) NOVOLOG *MILD* ALGORITHM WITH MEALS BEDTIME SC Last administered on 01/08/19at 17:36; Admin Dose 2 UNIT; Start 01/05/19 at 08:00 Fluconazole 100 ml @ 100 mls/hr Q24H IVPB Last administered on 01/10/19at 13:57; Admin Dose 100 MLS/HR; Start 01/05/19 at 14:00 Morphine Sulfate (morphine) 2 mg Q3H PRN IV SEVERE PAIN LEVEL 7-10 Last administered on 01/11/19 08:25; Admin Dose 2 MG; Start 01/06/19 at 10:30 Acetaminophen/ Hydrocodone Bitart ([place] (5/325)) 1 tab Q6H PRN PO MODERATE PAIN LEVEL 4-6 Last administered on 01/10/19 20:12; Admin Dose 1 TAB; Start 01/06/19 at 10:30 Ondansetron HCl (Zofran Inj) 4 mg Q6H PRN IV NAUSEA AND/OR VOMITING; Start 01/07/19 at 09:30 Docusate Sodium (Colace) 100 mg BID PO Last administered on 01/10/19 20:11; Admin Dose 100 MG; Start 01/07/19 at 09:30 Insulin Glargine (Lantus) 10 units DAILY@2000 SC Last administered on 01/10/19 20:51; Admin Dose 10 UNITS; Start 01/08/19 at 20:00 Metformin HCl (Glucophage) 850 mg BID WITH MEALS PO Last administered on 01/11/19 08:25; Admin Dose 850 MG; Start 01/08/19 at 18:00 Thiamine HCl (Vitamin B1) 100 mg DAILY PO Last administered on 01/11/19 08:25; Admin Dose 100 MG; Start 01/08/19 at 12:00 Glimepiride (Amaryl) 2 mg AC BREAKFAST DINNER PO Last administered on 01/11/19 06:55; Admin Dose 2 MG; Start 01/08/19 at 17:30 Diagnostic Test (Pha) (Accu-Chek) 1 ea AC MEALS AND BEDTIME XX Last administered on 01/11/19 06:54; Admin Dose 1 EA; Start 01/08/19 at 17:30 Clindamycin HCl/ Dextrose 50 ml @ 50 mls/hr Q8 IVPB Last administered on 01/11/19 05:56; Admin Dose 50 MLS/HR; Start 01/10/19 at 14:00 CHAPIN GARCÍA NP January 11, 2019 11:42
[2019-01-11] MEDS: HYDROCODONE/APAP (5/325) TAB PO PRN ×2 (12:09→20:18)
[2019-01-11 14:14] VITALS: BP 101/60; PULSE 86; RESP 18
[2019-01-11] MEDS: FLUCONAZOLE 200 MG (PMX) 100 ML IVPB SCH (15:24)
[2019-01-11 19:30] VITALS: BP 96/63; PULSE 72; RESP 17
[2019-01-11] MEDS: INSULIN GLARGINE [LANTus] (100 UNITS/ML) SYG SC SCH (20:22)
[2019-01-12 02:00] VITALS: BP 105/64; PULSE 66; RESP 19
[2019-01-12] MEDS: ACCU-CHEK XX SCH ×5 (02:00→20:50)
[2019-01-12] MEDS: HYDROCODONE/APAP (5/325) TAB PO PRN ×2 (02:20→09:00)
[2019-01-12] MEDS: CLINDAMYCIN 600 MG/D5W (PMX) 50 ML IVPB SCH ×3 (05:33→22:10)
[2019-01-12 08:00] VITALS: BP 94/62; PULSE 71; RESP 18
[2019-01-12] MEDS: metFORMIN 850 MG TAB PO SCH ×2 (09:00→17:11)
[2019-01-12] MEDS: DOCUSATE SODIUM 100 MG CAP PO SCH ×2 (09:00→20:50)
[2019-01-12] MEDS: GLIMEPIRIDE 2 MG TAB PO SCH ×2 (09:01→17:11)
[2019-01-12] MEDS: INSULIN ASPART [NOVOLOG] 3 ML PEN SC SCH ×4 (09:01→20:48)
[2019-01-12] MEDS: THIAMINE 100 MG TAB PO SCH (09:01)
--- NOTE | 2019-01-12 13:44 | CONS ---
Assessment/Plan Assessment/Plan Hospital Course (Demo Recall) Alert feels better looks comfortable no fevers overnight drainage culture now growing gram-negative rods. She still has significant edema and pain in her right labia Wound culture grew Jaquelin albicans and glabrata and coag negative staph species Antimicrobials: Clindamycin fluconazole Physical examination obese well-developed middle-aged woman who is alert in no distress. Head atraumatic normocephalic neck is supple chest rise symmetrical breath sounds clear heart S1-S2 abdomen soft bowel sounds present extremities without cyanosis Assessment: 1. Resolving perineal cellulitis 2. Status post vulvar abscess drainage 3. Uncontrolled diabetes Plan: Stable, add Levaquin, continue abx, f/u cx's, consider adding warm moist compresses to the area or sitz baths Consultation Date/Type/Reason Admit Date/Time January 06, 2019 at 08:40 Initial Consult Date 01/04/19 Type of Consult id Requesting Provider: SARA WEBB MD Date/Time of Note DATE: 01/12/19 TIME: 13:43 Exam/Review of Systems Exam Vitals Vital Signs Date Temp Pulse Resp B/P (MAP) Pulse Ox O2 O2 Flow FiO2 Time Delivery Rate 01/12/19 97.9 71 18 94/62 (73) 97 08:00 01/10/19 Room Air 14:21 Intake and Output 01/11/19 01/11/19 01/12/19 1515:00 23:00 07:00 IntakeIntake Total 410 ml 970 ml 100 ml BalanceBalance 410 ml 970 ml 100 ml Results Result Diagram: 01/11/19 0842 01/11/19 0842 Results 24hrs Laboratory Tests Test 01/11/19 17:08 01/11/19 20:21 01/11/19 21:23 01/12/19 08:55 Bedside Glucose 164 198 179 111 Test 01/12/19 12:28 Bedside Glucose 170 Medications Medication Current Medications Acetaminophen (Tylenol Tab) 650 mg Q4H PRN PO MILD PAIN(1-3)OR ELEVATED TEMP; Start 01/04/19 at 22:00 Miscellaneous Information 1 ea NOTE XX ; Start 01/04/19 at 22:00 Glucose (Glutose) 15 gm Q15M PRN PO DECREASED GLUCOSE; Start 01/04/19 at 22:00 Glucose (Glutose) 22.5 gm Q15M PRN PO DECREASED GLUCOSE; Start 01/04/19 at 22:00 Dextrose (D50w Syringe) 25 ml Q15M PRN IV DECREASED GLUCOSE; Start 01/04/19 at 22:00 Dextrose (D50w Syringe) 50 ml Q15M PRN IV DECREASED GLUCOSE; Start 01/04/19 at 22:00 Glucagon (Glucagen) 1 mg Q15M PRN IM DECREASED GLUCOSE; Start 01/04/19 at 22:00 Glucose (Glutose) 15 gm Q15M PRN BUCCAL DECREASED GLUCOSE; Start 01/04/19 at 22 :00 Diagnostic Test (Pha) (Accu-Chek) 1 ea 02 XX Last administered on 01/07/19 02:39; Admin Dose 1 EA; Start 01/05/19 at 02:00 Insulin Aspart (Novolog Insulin Pen) NOVOLOG *MILD* ALGORITHM WITH MEALS BEDTIME SC Last administered on 01/12/19 12:32; Admin Dose 1 UNIT; Start 01/05/19 at 08:00 Fluconazole 100 ml @ 100 mls/hr Q24H IVPB Last administered on 01/11/19 15:24; Admin Dose 100 MLS/HR; Start 01/05/19 at 14:00 Morphine Sulfate (morphine) 2 mg Q3H PRN IV SEVERE PAIN LEVEL 7-10 Last administered on 01/11/19 17:32; Admin Dose 2 MG; Start 01/06/19 at 10:30 Acetaminophen/ Hydrocodone Bitart ([place] (5/325)) 1 tab Q6H PRN PO MODERATE PAIN LEVEL 4-6 Last administered on 01/12/19 09:00; Admin Dose 1 TAB; Start 01/06/19 at 10:30 Ondansetron HCl (Zofran Inj) 4 mg Q6H PRN IV NAUSEA AND/OR VOMITING; Start 01/07/19 at 09:30 Docusate Sodium (Colace) 100 mg BID PO Last administered on 01/11/19 20:18; Admin Dose 100 MG; Start 01/07/19 at 09:30 Insulin Glargine (Lantus) 10 units DAILY@2000 SC Last administered on 01/11/19 20:22; Admin Dose 10 UNITS; Start 01/08/19 at 20:00 Metformin HCl (Glucophage) 850 mg BID WITH MEALS PO Last administered on 01/12/19 09:00; Admin Dose 850 MG; Start 01/08/19 at 18:00 Thiamine HCl (Vitamin B1) 100 mg DAILY PO Last administered on 01/12/19 09:01; Admin Dose 100 MG; Start 01/08/19 at 12:00 Glimepiride (Amaryl) 2 mg AC BREAKFAST DINNER PO Last administered on 01/12/19 09:01; Admin Dose 2 MG; Start 01/08/19 at 17:30 Diagnostic Test (Pha) (Accu-Chek) 1 ea AC MEALS AND BEDTIME XX Last administered on 01/11/19 06:54; Admin Dose 1 EA; Start 01/08/19 at 17:30 Clindamycin HCl/ Dextrose 50 ml @ 50 mls/hr Q8 IVPB Last administered on 01/12/19 13:30; Admin Dose 50 MLS/HR; Start 01/10/19 at 14:00 CHAPIN GARCÍA NP January 12, 2019 13:44
[2019-01-12 14:00] VITALS: BP 92/54; PULSE 75; RESP 16
[2019-01-12] MEDS: FLUCONAZOLE 200 MG (PMX) 100 ML IVPB SCH (14:55)
[2019-01-12 17:52] VITALS: BP 106/62
[2019-01-12] MEDS: morphine 2 MG INJ IV PRN ×2 (17:52→20:52)
[2019-01-12 19:46] VITALS: BP 106/65; PULSE 76; RESP 18
[2019-01-12] MEDS: INSULIN GLARGINE [LANTus] (100 UNITS/ML) SYG SC SCH (20:49)
--- NOTE | 2019-01-12 22:39 | QN ---
Documentation Comment Patient seen and examined. She states has some pain on the right side of vulvar. She denies nausea, vomiting fever, chills and, abdominal pain Physical exam is unremarkable except for erythema and induration at right side of vulva. Assessment and plan 38 yo female with DM admitted with right vulvar abscess status post drainage at emergency department -Afebrile, vital signs stable -Recent imaging showed no residual abscess. -She is currently on clindamycin 600 mg every 8 hours and Diflucan 200 mg daily. She was seen by infectious disease PA, who recommended adding Levaquin as a recent culture of abscess revealed gram-negative najma. -She is being followed by hospitalist,infectious disease and laborist NORM SAUCEDA January 12, 2019 22:39
[2019-01-13] VITALS (7 sets, daily range): BP systolic 81–117; BP diastolic 51–76; PULSE 67–85; RESP 16–19
[2019-01-13] MEDS: HYDROCODONE/APAP (5/325) TAB PO PRN ×2 (00:05→18:33)
[2019-01-13] MEDS: ACCU-CHEK XX SCH ×5 (02:00→21:06)
[2019-01-13] MEDS: LEVOFLOXACIN 500 MG TAB PO SCH (05:36)
[2019-01-13] MEDS: CLINDAMYCIN 600 MG/D5W (PMX) 50 ML IVPB SCH ×3 (05:36→21:01)
[2019-01-13] MEDS: INSULIN ASPART [NOVOLOG] 3 ML PEN SC SCH ×4 (08:00→21:00)
[2019-01-13] MEDS: GLIMEPIRIDE 2 MG TAB PO SCH ×2 (08:36→17:18)
[2019-01-13] MEDS: metFORMIN 850 MG TAB PO SCH ×2 (08:36→17:18)
[2019-01-13] MEDS: DOCUSATE SODIUM 100 MG CAP PO SCH ×2 (08:39→21:00)
[2019-01-13] MEDS: THIAMINE 100 MG TAB PO SCH (08:39)
[2019-01-13] MEDS: morphine 2 MG INJ IV PRN ×3 (10:25→22:53)
--- NOTE | 2019-01-13 12:03 | CONS ---
Assessment/Plan Assessment/Plan Hospital Course (Demo Recall) Alert feels better looks comfortable no fevers overnight drainage culture now growing gram-negative rods. She still has significant edema and pain in her right labia Wound culture grew Jaquelin albicans and glabrata and coag negative staph species, repeat cx + E coli/St aureus Antimicrobials: Clindamycin fluconazole Levaquin Physical examination obese well-developed middle-aged woman who is alert in no distress. Head atraumatic normocephalic neck is supple chest rise symmetrical breath sounds clear heart S1-S2 abdomen soft bowel sounds present extremities without cyanosis Assessment: 1. Resolving perineal cellulitis 2. Status post vulvar abscess drainage 3. Uncontrolled diabetes Plan: Remains stable, continue abx, warm moist compresses to the area Consultation Date/Type/Reason Admit Date/Time January 06, 2019 at 08:40 Initial Consult Date 01/04/19 Type of Consult id Requesting Provider: SARA WEBB MD Date/Time of Note DATE: 01/13/19 TIME: 12:02 Exam/Review of Systems Exam Vitals Vital Signs Date Temp Pulse Resp B/P (MAP) Pulse Ox O2 O2 Flow FiO2 Time Delivery Rate 01/13/19 68 16 96/57 (70) 08:34 01/13/19 98.6 98 Room Air 07:16 Intake and Output 01/12/19 01/12/19 01/13/19 1515:00 23:00 07:00 IntakeIntake Total 1190 ml 100 ml 50 ml BalanceBalance 1190 ml 100 ml 50 ml Results Result Diagram: 01/11/19 0842 01/11/19 0842 Results 24hrs Laboratory Tests Test 01/12/19 12:28 01/12/19 17:09 01/12/19 20:47 01/13/19 08:35 Bedside Glucose 170 135 152 97 Medications Medication Current Medications Acetaminophen (Tylenol Tab) 650 mg Q4H PRN PO MILD PAIN(1-3)OR ELEVATED TEMP; Start 01/04/19 at 22:00 Miscellaneous Information 1 ea NOTE XX ; Start 01/04/19 at 22:00 Glucose (Glutose) 15 gm Q15M PRN PO DECREASED GLUCOSE; Start 01/04/19 at 22:00 Glucose (Glutose) 22.5 gm Q15M PRN PO DECREASED GLUCOSE; Start 01/04/19 at 22:00 Dextrose (D50w Syringe) 25 ml Q15M PRN IV DECREASED GLUCOSE; Start 01/04/19 at 22:00 Dextrose (D50w Syringe) 50 ml Q15M PRN IV DECREASED GLUCOSE; Start 01/04/19 at 22:00 Glucagon (Glucagen) 1 mg Q15M PRN IM DECREASED GLUCOSE; Start 01/04/19 at 22:00 Glucose (Glutose) 15 gm Q15M PRN BUCCAL DECREASED GLUCOSE; Start 01/04/19 at 22:00 Diagnostic Test (Pha) (Accu-Chek) 1 ea 02 XX Last administered on 01/07/19 02:39; Admin Dose 1 EA; Start 01/05/19 at 02:00 Insulin Aspart (Novolog Insulin Pen) NOVOLOG *MILD* ALGORITHM WITH MEALS BEDTIME SC Last administered on 01/12/19 12:32; Admin Dose 1 UNIT; Start 01/05/19 at 08:00 Fluconazole 100 ml @ 100 mls/hr Q24H IVPB Last administered on 01/12/19 14:55; Admin Dose 100 MLS/HR; Start 01/05/19 at 14:00 Morphine Sulfate (morphine) 2 mg Q3H PRN IV SEVERE PAIN LEVEL 7-10 Last administered on 01/13/19 10:25; Admin Dose 2 MG; Start 01/06/19 at 10:30 Acetaminophen/ Hydrocodone Bitart ([place] (5/325)) 1 tab Q6H PRN PO MODERATE PAIN LEVEL 4-6 Last administered on 01/13/19 00:05; Admin Dose 1 TAB; Start 01/06/19 at 10:30 Ondansetron HCl (Zofran Inj) 4 mg Q6H PRN IV NAUSEA AND/OR VOMITING; Start 01/07/19 at 09:30 Docusate Sodium (Colace) 100 mg BID PO Last administered on 01/13/19 08:39; Admin Dose 100 MG; Start 01/07/19 at 09:30 Insulin Glargine (Lantus) 10 units DAILY@2000 SC Last administered on 01/12/19 20:49; Admin Dose 10 UNITS; Start 01/08/19 at 20:00 Metformin HCl (Glucophage) 850 mg BID WITH MEALS PO Last administered on 01/13/19 08:36; Admin Dose 850 MG; Start 01/08/19 at 18:00 Thiamine HCl (Vitamin B1) 100 mg DAILY PO Last administered on 01/13/19 08:39; Admin Dose 100 MG; Start 01/08/19 at 12:00 Glimepiride (Amaryl) 2 mg AC BREAKFAST DINNER PO Last administered on 01/13/19 08:36; Admin Dose 2 MG; Start 01/08/19 at 17:30 Diagnostic Test (Pha) (Accu-Chek) 1 ea AC MEALS AND BEDTIME XX Last administered on 01/12/19at 20:50; Admin Dose 1 EA; Start 01/08/19 at 17:30 Clindamycin HCl/ Dextrose 50 ml @ 50 mls/hr Q8 IVPB Last administered on 01/13/19 05:36; Admin Dose 50 MLS/HR; Start 01/10/19 at 14:00 Levofloxacin (Levaquin) 500 mg DAILY@06 PO Last administered on 01/13/19 05:36; Admin Dose 500 MG; Start 01/13/19 at 06:00 CHAPIN GARCÍA NP January 13, 2019 12:03
[2019-01-13] MEDS: FLUCONAZOLE 200 MG (PMX) 100 ML IVPB SCH (15:45)
[2019-01-13] MEDS ORDERED: SOD CHLORIDE 0.9% 1,000 ML IV ONE (18:00)
--- NOTE | 2019-01-13 19:27 | QN ---
Documentation Comment I was called by RN due to patient has vaginal bleeding after showered. Attended to the bed side. Patient was comfortable in the bed. Physical exam examination general appearance alert and oriented x4 appears to be in mild to moderate distress External genitalia. There is evidence of a large right-sided labial abscess, appears to be significantly decreasing in the size There is some fluctuation in the middle however the external of the area of the abscess is still very much indurated There is a little cracked or in the right labia in the lateral side where appear to drain some blood. There is no evidence of active bleeding noted. Area is very tender. 38 yo female with DM admitted with right vulvar abscess status post drainage at emergency department -Afebrile, vital signs stable -Recent imaging showed no residual abscess. -She is currently on clindamycin 600 mg every 8 hours and Diflucan 200 mg daily. She was seen by infectious disease PA, who recommended adding Levaquin as a recent culture of abscess revealed gram-negative najma. -She is being followed by hospitalist,infectious disease , Admitted to continue antibiotics and continue warm compress ultimately candidate for drainage in the OR in the next few days. PAVEL ESCOBAR MD January 13, 2019 19:27
[2019-01-13] MEDS: INSULIN GLARGINE [LANTus] (100 UNITS/ML) SYG SC SCH (21:02)
[2019-01-14] MEDS: ACCU-CHEK XX SCH ×5 (02:00→21:00)
[2019-01-14 02:32] VITALS: BP 99/59; PULSE 69; RESP 18
[2019-01-14] MEDS: LEVOFLOXACIN 500 MG TAB PO SCH (05:32)
[2019-01-14] MEDS: HYDROCODONE/APAP (5/325) TAB PO PRN ×2 (05:33→19:30)
[2019-01-14] MEDS: CLINDAMYCIN 600 MG/D5W (PMX) 50 ML IVPB SCH ×3 (05:33→22:54)
[2019-01-14 07:59] VITALS: BP 94/68; PULSE 69; RESP 18
[2019-01-14] MEDS: INSULIN ASPART [NOVOLOG] 3 ML PEN SC SCH ×4 (08:00→21:00)
[2019-01-14] MEDS: DOCUSATE SODIUM 100 MG CAP PO SCH ×2 (08:12→21:00)
[2019-01-14] MEDS: GLIMEPIRIDE 2 MG TAB PO SCH ×2 (08:12→17:19)
[2019-01-14] MEDS: metFORMIN 850 MG TAB PO SCH ×2 (08:13→17:19)
[2019-01-14] MEDS: THIAMINE 100 MG TAB PO SCH (08:13)
--- NOTE | 2019-01-14 11:49 | CONS ---
Assessment/Plan Assessment/Plan Hospital Course (Demo Recall) All noted, no acute events Wound culture grew Jaquelin albicans and glabrata and coag negative staph species, repeat cx + E coli/strep/JONATAN Antimicrobials: Clindamycin fluconazole Levaquin Physical examination obese well-developed middle-aged woman who is alert in no distress. Head atraumatic normocephalic neck is supple chest rise symmetrical breath sounds clear heart S1-S2 abdomen soft bowel sounds present extremities without cyanosis Assessment: 1. Resolving perineal cellulitis 2. Status post vulvar abscess drainage 3. Uncontrolled diabetes Plan: Remains stable, still with drainage, continue abx, warm moist compresses to the area/sitz baths Consultation Date/Type/Reason Admit Date/Time January 06, 2019 at 08:40 Initial Consult Date 01/04/19 Type of Consult id Requesting Provider: SARA WEBB MD Date/Time of Note DATE: 01/14/19 TIME: 11:48 Exam/Review of Systems Exam Vitals Vital Signs Date Temp Pulse Resp B/P (MAP) Pulse Ox O2 O2 Flow FiO2 Time Delivery Rate 01/14/19 98.1 69 18 94/68 (77) Room Air 07:59 01/13/19 98 20:00 Intake and Output 01/13/19 01/13/19 01/14/19 1515:00 23:00 07:00 IntakeIntake Total 880 ml 50 ml BalanceBalance 880 ml 50 ml Results Result Diagram: 01/11/19 0842 01/11/19 0842 Results 24hrs Laboratory Tests Test 01/13/19 12:09 01/13/19 17:17 01/13/19 20:59 01/14/19 08:12 Bedside Glucose 175 84 145 95 Medications Medication Current Medications Acetaminophen (Tylenol Tab) 650 mg Q4H PRN PO MILD PAIN(1-3)OR ELEVATED TEMP; Start 01/04/19 at 22:00 Miscellaneous Information 1 ea NOTE XX ; Start 01/04/19 at 22:00 Glucose (Glutose) 15 gm Q15M PRN PO DECREASED GLUCOSE; Start 01/04/19 at 22:00 Glucose (Glutose) 22.5 gm Q15M PRN PO DECREASED GLUCOSE; Start 01/04/19 at 22:00 Dextrose (D50w Syringe) 25 ml Q15M PRN IV DECREASED GLUCOSE; Start 01/04/19 at 22:00 Dextrose (D50w Syringe) 50 ml Q15M PRN IV DECREASED GLUCOSE; Start 01/04/19 at 22:00 Glucagon (Glucagen) 1 mg Q15M PRN IM DECREASED GLUCOSE; Start 01/04/19 at 22:00 Glucose (Glutose) 15 gm Q15M PRN BUCCAL DECREASED GLUCOSE; Start 01/04/19 at 22:00 Diagnostic Test (Pha) (Accu-Chek) 1 ea 02 XX Last administered on 01/07/19 02:39; Admin Dose 1 EA; Start 01/05/19 at 02:00 Insulin Aspart (Novolog Insulin Pen) NOVOLOG *MILD* ALGORITHM WITH MEALS BEDTIME SC Last administered on 01/13/19 12:36; Admin Dose 1 UNIT; Start at 08:00 Fluconazole 100 ml @ 100 mls/hr Q24H IVPB Last administered on 01/13/19 15:45; Admin Dose 100 MLS/HR; Start 01/05/19 at 14:00 Morphine Sulfate (morphine) 2 mg Q3H PRN IV SEVERE PAIN LEVEL 7-10 Last administered on 01/13/19 22:53; Admin Dose 2 MG; Start 01/06/19 at 10:30 Acetaminophen/ Hydrocodone Bitart ([place] (5/325)) 1 tab Q6H PRN PO MODERATE PAIN LEVEL 4-6 Last administered on 01/14/19 05:33; Admin Dose 1 TAB; Start 01/06/19 at 10:30 Ondansetron HCl (Zofran Inj) 4 mg Q6H PRN IV NAUSEA AND/OR VOMITING; Start 01/07/19 at 09:30 Docusate Sodium (Colace) 100 mg BID PO Last administered on 01/14/19 08:12; Admin Dose 100 MG; Start 01/07/19 at 09:30 Insulin Glargine (Lantus) 10 units DAILY@2000 SC Last administered on 01/13/19 21:02; Admin Dose 10 UNITS; Start 01/08/19 at 20:00 Metformin HCl (Glucophage) 850 mg BID WITH MEALS PO Last administered on 01/14/19 08:13; Admin Dose 850 MG; Start 01/08/19 at 18:00 Thiamine HCl (Vitamin B1) 100 mg DAILY PO Last administered on 01/14/19 08:13; Admin Dose 100 MG; Start 01/08/19 at 12:00 Glimepiride (Amaryl) 2 mg AC BREAKFAST DINNER PO Last administered on 01/14/19 08:12; Admin Dose 2 MG; Start 01/08/19 at 17:30 Diagnostic Test (Pha) (Accu-Chek) 1 ea AC MEALS AND BEDTIME XX Last administered on 01/13/19 21:06; Admin Dose 1 EA; Start 01/08/19 at 17:30 Clindamycin HCl/ Dextrose 50 ml @ 50 mls/hr Q8 IVPB Last administered on 01/14/19 05:33; Admin Dose 50 MLS/HR; Start 01/10/19 at 14:00 Levofloxacin (Levaquin) 500 mg DAILY@06 PO Last administered on 01/14/19 05:32; Admin Dose 500 MG; Start 01/13/19 at 06:00 CHAPIN GARCÍA NP January 14, 2019 11:49
[2019-01-14] MEDS: morphine 2 MG INJ IV PRN (12:08)
[2019-01-14] MEDS: FLUCONAZOLE 200 MG (PMX) 100 ML IVPB SCH (13:48)
[2019-01-14 14:39] VITALS: BP 91/58; PULSE 81; RESP 18
[2019-01-14 20:11] VITALS: BP 122/65; PULSE 92; RESP 20
[2019-01-14] MEDS: INSULIN GLARGINE [LANTus] (100 UNITS/ML) SYG SC SCH (21:14)
--- NOTE | 2019-01-14 21:32 | PN ---
Date/Time of Note Date/Time of Note DATE: 01/14/19 TIME: 21:29 OB Subjective Subjective Subjective c/o vulvar pain and discharge from the wound OB Objective Heart: Rhythm Normal Abdomen: WNL Cervical Dilatation: other (righ vulva indurated, mild serous discharge, wound culture done) OB Assessment/Plan Reason for admission: other (Vulvar abscess) Induction Method: other (continue IV antibiotics, siths baths, NPO after mi dnigh possible I@D of the vulvar abscess tmorrow) ASHLEY SWAN MD January 14, 2019 21:32
[2019-01-15] VITALS (20 sets, daily range): BP systolic 90–136; BP diastolic 57–90; PULSE 67–117; RESP 11–29
[2019-01-15] MEDS: DEXTROSE 5%-0.45% NACL 1,000 ML IV SCH ×2 (00:24→08:29)
[2019-01-15] MEDS: INSULIN ASPART [NOVOLOG] 3 ML PEN SC SCH ×6 (00:33→23:15)
[2019-01-15] MEDS: morphine 2 MG INJ IV PRN ×2 (01:20→12:10)
[2019-01-15] MEDS: CLINDAMYCIN 600 MG/D5W (PMX) 50 ML IVPB SCH ×2 (05:06→16:56)
[2019-01-15] MEDS: ACCU-CHEK XX SCH ×4 (06:08→23:15)
[2019-01-15] MEDS: GLIMEPIRIDE 2 MG TAB PO SCH ×2 (06:09→17:18)
[2019-01-15] MEDS: LEVOFLOXACIN 500 MG TAB PO SCH (06:11)
[2019-01-15] MEDS: metFORMIN 850 MG TAB PO SCH ×2 (08:25→17:18)
[2019-01-15] MEDS: THIAMINE 100 MG TAB PO SCH (08:25)
[2019-01-15] MEDS: DOCUSATE SODIUM 100 MG CAP PO SCH ×2 (08:25→23:16)
--- NOTE | 2019-01-15 09:54 | QN ---
Documentation Comment 38 yo female with DM admitted with right vulvar abscess status post drainage by ED -Repeat CT imaging on showed no residual abscess -Afebrile, vital signs stable Patient reports that the swelling has been reduced and there is spontaneous drainage for the last 2 days Patient's been receiving sitz bath since yesterday Patient strongly desires to proceed with I&D Patient is being managed by ID and currently on Levaquin 500 mg p.o. daily clindamycin 600 mg, IV every 8 hours and fluconazole IV daily ID discontinued clindamycin and Levaquin and initiated Zosyn prior to surgery Last culture on 01/11/2019 Microbiology GRAM STAIN Final POLYMORPH. LEUKOCYTE NONE SEEN GRAM POSITIVE COCCI 1+ GRAM POSITIVE RODS 1+ GRAM NEGATIVE RODS 1+ WOUND CULTURE Preliminary Organism 1 ESCHERICHIA COLI QUANTITY 1+ Organism 2 STAPHYLOCOCCUS AUREUS QUANTITY SCANT GROWTH Organism 3 GAMMA HEMOLYTIC STREP SPP QUANTITY SCANT GROWTH E COLI S AUREUS M.I.C. RX M.I.C. RX --------- --- --------- --- AMPICILLIN 4 S CEFAZOLIN I S CEFOTAXIME S CEFOXITIN SCREEN NEG CIPROFLOXACIN <=0.25 S <=0.5 S CLINDAMYCIN <=0.25 S DOXYCYCLINE S ERYTHROMYCIN <=0.25 S GENTAMICIN <=1 S LEVOFLOXACIN <=0.12 S <=0.12 S OXACILLIN 0.5 S PENICILLIN-G 0.12 R RIFAMPIN <=0.5 S VANCOMYCIN <=0.5 S TOBRAMYCIN <=1 S Hematology - 72 Hrs Test 01/15/19 10:53 Hematocrit 38.3 % (37.0-47.0) Hemoglobin 13.0 g/dl (12.0-16.0) Mean Corpuscular Hemoglobin 30.9 pg (29.0-33.0) Mean Corpuscular Hemoglobin Concent 33.9 g/dl (32.0-37.0) Mean Corpuscular Volume 91.0 fl (82.0-101.0) Mean Platelet Volume 9.2 fl (7.4-10.4) Platelet Count 510 10^3/UL (140-415) #H Red Blood Count 4.21 10^6/ul (4.20-5.40) Red Cell Distribution Width 11.8 % (11.5-14.5) White Blood Count 7.0 10^3/ul (4.8-10.8) # Chemistry Test 01/12/19 17:09 01/12/19 20:47 01/13/19 08:35 01/13/19 12:09 Bedside 135 152 97 175 Glucose mg/dL (70-220) mg/dL (70-220) mg/dL (70-220) mg/dL (70-220) Test 01/13/19 17:17 01/13/19 20:59 01/14/19 08:12 01/14/19 12:10 Bedside 84 145 95 120 Glucose mg/dL (70-220) mg/dL (70-220) mg/dL (70-220) mg/dL (70-220) Test 01/14/19 17:13 01/14/19 21:10 01/15/19 00:29 01/15/19 05:02 Bedside 155 128 192 212 Glucose mg/dL (70-220) mg/dL (70-220) mg/dL (70-220) mg/dL (70-220) Test 01/15/19 08:21 01/15/19 12:07 Bedside 168 131 Glucose mg/dL (70-220) mg/dL (70-220) Physical exam; External genitalia. Right vulva indurated reduced in size, mild serous drainage noted, tenderness upon palpation Assessment and plan A repeat vulvar culture was obtained from the drainage today please follow up with the results We will proceed with incision and drainage of right vulvar abscess today MAKAYLA LUCERO MD January 15, 2019 09:54
[2019-01-15] MEDS: FLUCONAZOLE 200 MG (PMX) 100 ML IVPB SCH (13:53)
[2019-01-15] MEDS: HYDROCODONE/APAP (5/325) TAB PO PRN (13:54)
--- NOTE | 2019-01-15 17:42 | CONS ---
Assessment/Plan Assessment/Plan Hospital Course (Demo Recall) ID PROGRESS NOTE CURRENT ABX: DAY #=> Levaquin + Clinda + Diflucan 01/15/19 1053 01/11/19 0842 24H INTERVAL SUMMARY * Awake, alert, oriented, reporting persistent pain right labia w/drainage /blood during shower * Wound is draining w/repeat wound cx snet => Pending * SIRS w/TMax today 100.0, resolving leukocytosis, tachycardia HR 117, low B /P 93/60 today IMAGING * 01/09/19 CT PELVIS: Phlegmonous changes with asymmetric fat stranding and edema of the right labia majora, measuring up to 5.8 x 3.5 cm in transaxial dimensions. No discrete fluid collection or soft tissue gas identified at this time. Documentation of complete resolution after treatment is recommended either by clinical exam or follow-up imaging (ultrasound, MR or CT) to exclude underlying neoplasm. MICRO/OTHER * * 01/11/19 [facility] CX: WOUND CULTURE Final Organism 1 ESCHERICHIA COLI QUANTITY 1+ Organism 2 STAPHYLOCOCCUS AUREUS QUANTITY SCANT GROWTH Organism 3 GAMMA HEMOLYTIC STREP SPP QUANTITY SCANT GROWTH E COLI S AUREUS GAMMA STRP M.I.C. RX M.I.C. RX M.I.C. RX --------- --- --------- --- --------- --- AMPICILLIN 4 S CEFAZOLIN I S CEFOTAXIME S 0.047 S CEFOXITIN SCREEN NEG CIPROFLOXACIN <=0.25 S <=0.5 S CLINDAMYCIN <=0.25 S DOXYCYCLINE S ERYTHROMYCIN <=0.25 S GENTAMICIN <=1 S LEVOFLOXACIN <=0.12 S <=0.12 S OXACILLIN 0.5 S PENICILLIN 0.032 S PENICILLIN-G 0.12 R RIFAMPIN <=0.5 S VANCOMYCIN <=0.5 S <=0.5 S TOBRAMYCIN <=1 S TRIMETHOPRIM/SULFAMETHOXAZOLE <=20 S <=10 S GAMMA STRP Zone Size RX --------- --- * CLINDAMYCIN S * ERYTHROMYCIN R * 01/05/19 [facility] CX : WOUND CULTURE Final Organism 1 NAOMI ALBICANS QUANTITY SCANT GROWTH Organism 2 COAGULASE NEGATIVE STAPH QUANTITY ISOLATED FROM BROTH ONLY Organism 3 NAOMI GLABRATA QUANTITY SCANT GROWTH PHYSICAL EXAMINATION: GENERAL: VSS, NAD HEENT: AT, NC, anicteric, NECK: Supple, CHEST: Equal chest rise bilaterally without dyspnea HEART: Pulse RRR ABDOMEN: soft : Right vulvar abscess, hard with severe pain Edematous engorged labia w/white vaginal yeast infection EXTREMITIES: Warm, dry SKIN: No rash, no diaphoresis ID ASSESSMENT 38 yo F admit with: 1. SIRS w/TMax today 100.0, resolving leukocytosis, tachycardia HR 117, low B/P 93/60 today 2. Perineal cellulitis 3. Status post vulvar abscess drainage 4. Uncontrolled diabetes 5. Mild hepatic steatosis. (-)MRSA Nares ABX ALLERGIES: KNDA INVASIVES: PICC RUEXT CURRENT ABX: DAY # => Levaquin + Clinda + Diflucan ID RECOMMENDATIONS/PLAN: 1. Per notes wound repeat wound Cx from 01/14/19 is pending 2. Plan is back to OR tonight 3. Patient with increased SIRS -- would not change to PO ABX until after 01/14/19 wound Cx results, * Let's change ABX to Unasyn + DIflucan 4. Post I&D -> she may DC home on Augmentin 875mg BID + Diflucan 100mg po x 5-7 days . Consultation Date/Type/Reason Admit Date/Time January 06, 2019 at 08:40 Initial Consult Date 01/04/19 Requesting Provider: SARA WEBB MD Date/Time of Note DATE: 01/15/19 TIME: 17:16 Exam/Review of Systems Exam Vitals Vital Signs Date Temp Pulse Resp B/P (MAP) Pulse Ox O2 O2 Flow FiO2 Time Delivery Rate 01/15/19 100.2 117 20 136/80 96 Room Air 15:10 (98) Intake and Output 01/14/19 01/14/19 01/15/19 1515:00 23:00 07:00 IntakeIntake Total 1030 ml 600 ml 50 ml BalanceBalance 1030 ml 600 ml 50 ml Results Result Diagram: 01/15/19 1053 01/11/19 0842 Results 24hrs Laboratory Tests Test 01/14/19 21:10 01/15/19 00:29 01/15/19 05:02 01/15/19 08:21 Bedside Glucose 128 192 212 168 Test 01/15/19 10:53 01/15/19 12:07 White Blood Count 7.0 # Red Blood Count 4.21 Hemoglobin 13.0 Hematocrit 38.3 Mean Corpuscular 91.0 Volume Mean Corpuscular 30.9 Hemoglobin Mean Corpuscular 33.9 Hemoglobin Concent Red Cell 11.8 Distribution Width Platelet Count 510 #H Mean Platelet Volume 9.2 Immature 1.100 H Granulocytes % Neutrophils % 51.7 Lymphocytes % 37.3 Monocytes % 7.6 Eosinophils % 1.6 Basophils % 0.7 Nucleated Red Blood 0.0 Cells % Immature 0.080 H Granulocytes # Neutrophils # 3.6 Lymphocytes # 2.6 Monocytes # 0.5 Eosinophils # 0.1 Basophils # 0.1 Nucleated Red Blood 0.0 Cells # Bedside Glucose 131 Medications Medication Current Medications Acetaminophen (Tylenol Tab) 650 mg Q4H PRN PO MILD PAIN(1-3)OR ELEVATED TEMP; Start 01/04/19 at 22:00 Miscellaneous Information 1 ea NOTE XX ; Start 01/04/19 at 22:00 Glucose (Glutose) 15 gm Q15M PRN PO DECREASED GLUCOSE; Start 01/04/19 at 22:00 Glucose (Glutose) 22.5 gm Q15M PRN PO DECREASED GLUCOSE; Start 01/04/19 at 22:00 Dextrose (D50w Syringe) 25 ml Q15M PRN IV DECREASED GLUCOSE; Start 01/04/19 at 22:00 Dextrose (D50w Syringe) 50 ml Q15M PRN IV DECREASED GLUCOSE; Start 01/04/19 at 22:00 Glucagon (Glucagen) 1 mg Q15M PRN IM DECREASED GLUCOSE; Start 01/04/19 at 22:00 Glucose (Glutose) 15 gm Q15M PRN BUCCAL DECREASED GLUCOSE; Start 01/04/19 at 22:00 Fluconazole 100 ml @ 100 mls/hr Q24H IVPB Last administered on 01/15/19at 13:53; Admin Dose 100 MLS/HR; Start 01/05/19 at 14:00 Morphine Sulfate (morphine) 2 mg Q3H PRN IV SEVERE PAIN LEVEL 7-10 Last administered on 01/15/19at 12:10; Admin Dose 2 MG; Start 01/06/19 at 10:30 Acetaminophen/ Hydrocodone Bitart ([place] (5/325)) 1 tab Q6H PRN PO MODERATE PAIN LEVEL 4-6 Last administered on 01/15/19 13:54; Admin Dose 1 TAB; Start 01/06/19 at 10:30 Ondansetron HCl (Zofran Inj) 4 mg Q6H PRN IV NAUSEA AND/OR VOMITING; Start 01/07/19 at 09:30 Docusate Sodium (Colace) 100 mg BID PO Last administered on 01/15/19 08:25; Admin Dose 100 MG; Start 01/07/19 at 09:30 Insulin Glargine (Lantus) 10 units DAILY@2000 SC Last administered on 01/14/19 21:14; Admin Dose 10 UNITS; Start 01/08/19 at 20:00 Metformin HCl (Glucophage) 850 mg BID WITH MEALS PO Last administered on 08:25; Admin Dose 850 MG; Start 01/08/19 at 18:00 Thiamine HCl (Vitamin B1) 100 mg DAILY PO Last administered on 01/15/19 08:25; Admin Dose 100 MG; Start 01/08/19 at 12:00 Glimepiride (Amaryl) 2 mg AC BREAKFAST DINNER PO Last administered on 01/14/19 17:19; Admin Dose 2 MG; Start 01/08/19 at 17:30 Diagnostic Test (Pha) (Accu-Chek) 1 ea AC MEALS AND BEDTIME XX Last administered on 01/13/19 21:06; Admin Dose 1 EA; Start 01/08/19 at 17:30 Clindamycin HCl/ Dextrose 50 ml @ 50 mls/hr Q8 IVPB Last administered on 01/15/19 16:56; Admin Dose 50 MLS/HR; Start 01/10/19 at 14:00 Levofloxacin (Levaquin) 500 mg DAILY@06 PO Last administered on 01/15/19 06:11; Admin Dose 500 MG; Start 01/13/19 at 06:00 Insulin Aspart (Novolog Insulin Pen) NOVOLOG *MILD* ALGORITHM WITH MEALS BEDTIME SC ; Start 01/15/19 at 12:00 ANIKET BORJA NP January 15, 2019 17:27
[2019-01-15] MEDS ORDERED: AMPICILLIN/SULB 3 GM/NS (PMX) 100 ML IVPB SCH (18:00)
--- NOTE | 2019-01-15 20:37 | PREAC ---
Date/Time of Note Date/Time of Note DATE: 01/15/19 TIME: 20:34 Anesthesia Eval and Record Evaluation Time Pre-Procedure Interview DATE: 01/15/19 TIME: 20:34 Age 38 Sex female NPO: 8 hrs Preoperative diagnosis Vulvar abscess Planned procedure I&D of vulvar abscess Past Medical History Past Medical History: Includes Endo: Diabetes GI: Morbid obesity Surgery & Anesthesia Issues No known issue Meds Anticoagulation: No Beta Brent within 24 hr: No Reason Beta Brent not given: Pt. not on B-Brent Reported Medications Metformin Hcl* (Metformin Hcl*) 500 Mg Tablet, 500 MG PO BID WITH MEALS 01/04/19 Current Medications Acetaminophen (Tylenol Tab) 650 mg Q4H PRN PO MILD PAIN(1-3)OR ELEVATED TEMP; Start 01/04/19 at 22:00 Miscellaneous Information 1 ea NOTE XX ; Start 01/04/19 at 22:00 Glucose (Glutose) 15 gm Q15M PRN PO DECREASED GLUCOSE; Start 01/04/19 at 22:00 Glucose (Glutose) 22.5 gm Q15M PRN PO DECREASED GLUCOSE; Start 01/04/19 at 22:00 Dextrose (D50w Syringe) 25 ml Q15M PRN IV DECREASED GLUCOSE; Start 01/04/19 at 22:00 Dextrose (D50w Syringe) 50 ml Q15M PRN IV DECREASED GLUCOSE; Start 01/04/19 at 22:00 Glucagon (Glucagen) 1 mg Q15M PRN IM DECREASED GLUCOSE; Start 01/04/19 at 22:00 Glucose (Glutose) 15 gm Q15M PRN BUCCAL DECREASED GLUCOSE; Start 01/04/19 at 22:00 Fluconazole 100 ml @ 100 mls/hr Q24H IVPB Last administered on 01/15/19at 13:53; Admin Dose 100 MLS/HR; Start 01/05/19 at 14:00 Morphine Sulfate (morphine) 2 mg Q3H PRN IV SEVERE PAIN LEVEL 7-10 Last a dministered on 01/15/19at 12:10; Admin Dose 2 MG; Start 01/06/19 at 10:30 Acetaminophen/ Hydrocodone Bitart ([place] (5/325)) 1 tab Q6H PRN PO MODERATE PAIN LEVEL 4-6 Last administered on 01/15/19at 13:54; Admin Dose 1 TAB; Start 01/06/19 at 10:30 Ondansetron HCl (Zofran Inj) 4 mg Q6H PRN IV NAUSEA AND/OR VOMITING; Start 01/07/19 at 09:30 Docusate Sodium (Colace) 100 mg BID PO Last administered on 01/15/19 08:25; Admin Dose 100 MG; Start 01/07/19 at 09:30 Insulin Glargine (Lantus) 10 units DAILY@2000 SC Last administered on 01/14/19 21:14; Admin Dose 10 UNITS; Start 01/08/19 at 20:00 Metformin HCl (Glucophage) 850 mg BID WITH MEALS PO Last administered on 01/15/19 08:25; Admin Dose 850 MG; Start 01/08/19 at 18:00 Thiamine HCl (Vitamin B1) 100 mg DAILY PO Last administered on 01/15/19 08:25; Admin Dose 100 MG; Start 01/08/19 at 12:00 Glimepiride (Amaryl) 2 mg AC BREAKFAST DINNER PO Last administered on 01/14/19 17:19; Admin Dose 2 MG; Start 01/08/19 at 17:30 Diagnostic Test (Pha) (Accu-Chek) 1 ea AC MEALS AND BEDTIME XX Last administered on 01/13/19 21:06; Admin Dose 1 EA; Start 01/08/19 at 17:30 Insulin Aspart (Novolog Insulin Pen) NOVOLOG *MILD* ALGORITHM WITH MEALS BEDTIME SC ; Start 01/15/19 at 12:00 Ampicillin Sodium/ Sulbactam Sodium 100 ml @ 100 mls/hr Q6H IVPB ; Start 01/15/19 at 22:00 Meds reviewed: Yes Allergies Coded Allergies: No Known Allergy (Unverified , 01/04/19) Allergies Reviewed: Yes Labs/Studies Labs Reviewed: Reviewed by anesthesiologist Result Diagram: 01/15/19 1053 01/11/19 0842 Laboratory Tests 01/15/19 10:53 test: Negative Studies: ECG Pre-procedure Exam Last vitals Vital Signs Date Temp Pulse Resp B/P (MAP) Pulse Ox O2 O2 Flow FiO2 Time Delivery Rate 01/15/19 100.2 117 20 136/80 96 Room Air 15:10 (98) Airway: Adequate mouth opening, Adequate thyromental dist Mallampati: Mallampati II Teeth: Normal Lung: Normal Heart: Normal ASA Physical Status ASA physical status: 3 Emergency: E Planned Anesthetic General/MAC: MAC Planned Pain Management Parenteral pain med Pre-operative Attestations Prior to commencing anesthesia and surgery, the patient was re-evaluated, there was verification of: *The patient's identity *The results of appropriate recent lab work and preoperative vital signs *The above evaluation not changing prior to induction *Anesthetic plan, risk benefits, alternative and complications discussed with patient/family; questions answered; patient/family understands, accepts and wishes to proceed. JACINTA HER MD January 15, 2019 20:37
[2019-01-15] MEDS ORDERED: BUPIVACAINE 0.5% (SDV) 30 ML INJ ONE (20:38)
[2019-01-15] MEDS ORDERED: MIDAZOLAM 1 MG/ML 2 ML INJ ONE (20:43)
[2019-01-15] MEDS ORDERED: FENTAnyl 50 MCG/ML VIAL ONE (20:44)
[2019-01-15] MEDS ORDERED: HYDROmorphONE 1 MG/5 ML IV SYRINGE IV PRN (21:00)
[2019-01-15] MEDS ORDERED: METOCLOPRAMIDE 10 MG INJ IV PRN (21:00)
[2019-01-15] MEDS ORDERED: MICONAZOLE 100 MG VAG SUPP VAG ONE (21:00)
[2019-01-15] MEDS ORDERED: FENTAnyl 50 MCG/ML VIAL IV PRN (21:00)
[2019-01-15] MEDS ORDERED: DIPHENHYDRAMINE 50 MG INJ IV PRN (21:00)
[2019-01-15] MEDS ORDERED: ONDANSETRON 4 MG INJ IV PRN (21:00)
[2019-01-15] MEDS ORDERED: MEPERIDINE 25 MG INJ IV PRN (21:00)
[2019-01-15] MEDS ORDERED: PROPOFOL 60 ML ONE (21:35)
[2019-01-15] MEDS ORDERED: LIDOCAINE 2% (SDV) 5 ML INJ ONE (21:35)
--- NOTE | 2019-01-15 21:42 | SIPON ---
Date/Time of Note Date/Time of Note DATE: 01/15/19 TIME: 21:39 Operative Report Preoperative Diagnosis Right vulvar abscess Postoperative Diagnosis Incision and drainage of right vulvar abscess/hematoma EBL 50 cc IV fluids 500 cc Urine output 50 cc Operation/Procedure Performed Incision and drainage of right vulvar abscess Surgeon see signature line metal forger's assistant none Anesthesia: MAC, other Estimated blood loss: 10 - 50 ml's Transfusion Required none Specimen Abscess contents were sent for aerobic and anaerobic culture Grafts/Implants none Complications none MAKAYLA LUCERO MD January 15, 2019 21:42
--- NOTE | 2019-01-15 21:44 | PAC ---
Date/Time of Note Date/Time of Note DATE: 01/15/19 TIME: 21:43 Post-Anesthesia Notes Post-Anesthesia Note Last documented vital signs Vital Signs Date Temp Pulse Resp B/P (MAP) Pulse Ox O2 O2 Flow FiO2 Time Delivery Rate 01/15/19 100.2 117 20 136/80 96 Room Air 15:10 (98) Activity: WNL Respiratory function: WNL Cardiovascular function: WNL Mental status: Baseline Pain reasonably controlled: Yes Hydration appropriate: Yes Nausea/Vomiting absent: Yes Comments BP:112/56,P:92, Spo2:100%, T:98,8 JACINTA HER MD January 15, 2019 21:44
[2019-01-15] MEDS: HYDROmorphONE 1 MG/5 ML IV SYRINGE IV PRN ×2 (21:54→22:04)
[2019-01-15] MEDS ORDERED: HYDROCODONE/APAP (5/325) TAB PO PRN (22:00)
[2019-01-15] MEDS ORDERED: HYDROCODONE/APAP (10/325) TAB PO PRN (22:00)
[2019-01-15] MEDS ORDERED: IBUPROFEN 600 MG TAB PO PRN (22:00)
[2019-01-15] MEDS ORDERED: ACETAMINOPHEN 325 MG TAB PO PRN (22:00)
[2019-01-15] MEDS: INSULIN GLARGINE [LANTus] (100 UNITS/ML) SYG SC SCH (23:53)
[2019-01-15] MEDS: AMPICILLIN/SULB 3 GM/NS (PMX) 100 ML IVPB SCH (23:54)
[2019-01-16] MEDS: morphine 2 MG INJ IV PRN ×6 (00:08→23:01)
[2019-01-16 02:00] VITALS: BP 91/55; PULSE 77; RESP 18
[2019-01-16] MEDS: AMPICILLIN/SULB 3 GM/NS (PMX) 100 ML IVPB SCH ×4 (04:48→21:05)
[2019-01-16] MEDS: ACCU-CHEK XX SCH ×4 (07:00→21:00)
[2019-01-16 08:00] VITALS: BP 96/60; RESP 18
[2019-01-16] MEDS: INSULIN ASPART [NOVOLOG] 3 ML PEN SC SCH ×4 (08:00→21:00)
[2019-01-16] MEDS: DOCUSATE SODIUM 100 MG CAP PO SCH ×2 (08:11→21:05)
[2019-01-16] MEDS: GLIMEPIRIDE 2 MG TAB PO SCH ×2 (08:12→17:23)
[2019-01-16] MEDS: metFORMIN 850 MG TAB PO SCH ×2 (08:12→17:22)
[2019-01-16] MEDS: THIAMINE 100 MG TAB PO SCH (08:12)
[2019-01-16] MEDS: HYDROCODONE/APAP (5/325) TAB PO PRN ×2 (10:28→21:05)
--- NOTE | 2019-01-16 12:24 | OPR ---
Date/Time of Note Date/Time of Note DATE: 01/16/19 TIME: 12:12 Operative Report Preoperative Diagnosis Right vulvar abscess Postoperative Diagnosis Right vulvar abscess/hematoma Operation/Procedure Performed Incision and drainage of right vulvar abscess Surgeon see signature line Edger Saw Operator None Anesthesia Type: MAC Anesthesiologist: JACINTA HER MD Estimated Blood Loss: 10 - 50 ml's Transfusion none Specimen Vulvar abscess contents sent for aerobic and anaerobic culture Grafts/Implants none Complications none Pt Condition Post Procedure: stable Disposition: PACU Procedure Description Patient was taken to the operating room after adequate amount of anesthesia was given patient was prepped and draped in a normal sterile fashion Winter catheter was placed for continuous drainage of urine intraoperatively Attention was turned to the right vulvar abscess Upon evaluation the entire indurated area measured 7 cm. There was a half a centimeter break/crack in the skin which minimal amount of serosanguineous leakage was noted Using 11 size blade the same cracked/opening area of the skin was extended to 2 cm At this point moderate amount of blood was drained. No exudative material was obtained Using a Shireen clamp several pockets underneath the skin were manually opened to allow further drainage of blood A small amount of the content was sent for culture evaluation The hard indurated vulvar area was reduced significantly after continuous drainage of blood At this point no active bleeding was noted Iodine packing material was placed in the 2 cm opening to provide continuous further drainage of the multi-loculated vulvar abscess/hematoma Tegaderm dressing was placed on top of the incision site All sponge lap needle counts were correct Patient tolerated procedure well and taken back to recovery room in a stable condition Winter catheter was removed in the OR Urine output 50 cc EBL 50 cc IV fluids 500 cc MAKAYLA LUCERO MD January 16, 2019 12:23
[2019-01-16] MEDS: FLUCONAZOLE 200 MG (PMX) 100 ML IVPB SCH (13:37)
[2019-01-16 14:00] VITALS: BP 92/52; RESP 18
--- NOTE | 2019-01-16 14:00 | CONS ---
Assessment/Plan Assessment/Plan Hospital Course (Demo Recall) ID PROGRESS NOTE CURRENT ABX: DAY #=> UNASYN + DIFLUCAN S/P Levaquin + Clinda 24H INTERVAL SUMMARY POD #1 -> S/P back to OR for debridement right multi-loculated labial abscess last night * No fevers post op -- wound is packed == Wound Cx from 01/15 pm I&D sent * Awake, alert, oriented, ambulatory in the room, some pain at the wound site -- EAGER TO DC HOME * 01/15/19 woun dcx sent in am prior to I&D Pending WOUND CULTURE Preliminary Culture too young to evaluate * YESTERDAY she manifested SIRS w/TMax today 100.0, resolving leukocytosis, tachycardia HR 117, low B/P 93/60 IMAGING * 01/09/19 CT PELVIS: Phlegmonous changes with asymmetric fat stranding and edema of the right labia majora, measuring up to 5.8 x 3.5 cm in transaxial dimensions. No discrete fluid collection or soft tissue gas identified at this time. Documentation of complete resolution after treatment is recommended either by clinical exam or follow-up imaging (ultrasound, MR or CT) to exclude underlying neoplasm. MICRO/OTHER * * 01/11/19 [facility] CX: WOUND CULTURE Final Organism 1 ESCHERICHIA COLI QUANTITY 1+ Organism 2 STAPHYLOCOCCUS AUREUS QUANTITY SCANT GROWTH Organism 3 GAMMA HEMOLYTIC STREP SPP QUANTITY SCANT GROWTH E COLI S AUREUS GAMMA STRP M.I.C. RX M.I.C. RX M.I.C. RX --------- --- --------- --- --------- --- AMPICILLIN 4 S CEFAZOLIN I S CEFOTAXIME S 0.047 S CEFOXITIN SCREEN NEG CIPROFLOXACIN <=0.25 S <=0.5 S CLINDAMYCIN <=0.25 S DOXYCYCLINE S ERYTHROMYCIN <=0.25 S GENTAMICIN <=1 S LEVOFLOXACIN <=0.12 S <=0.12 S OXACILLIN 0.5 S PENICILLIN 0.032 S PENICILLIN-G 0.12 R RIFAMPIN <=0.5 S VANCOMYCIN <=0.5 S <=0.5 S TOBRAMYCIN <=1 S TRIMETHOPRIM/SULFAMETHOXAZOLE <=20 S <=10 S GAMMA STRP Zone Size RX --------- --- * CLINDAMYCIN S * ERYTHROMYCIN R * 01/05/19 [facility] CX : WOUND CULTURE Final Organism 1 NAOMI ALBICANS QUANTITY SCANT GROWTH Organism 2 COAGULASE NEGATIVE STAPH QUANTITY ISOLATED FROM BROTH ONLY Organism 3 NAOMI GLABRATA QUANTITY SCANT GROWTH PHYSICAL EXAMINATION: GENERAL: VSS, NAD HEENT: AT, NC, anicteric, NECK: Supple, CHEST: Equal chest rise bilaterally without dyspnea HEART: Pulse RRR ABDOMEN: soft : Right vulvar abscess, hard with severe pain Edematous engorged labia w/white vaginal yeast infection EXTREMITIES: Warm, dry SKIN: No rash, no diaphoresis ID ASSESSMENT 38 yo F admit with: 1. SIRS w/TMax today 100.0, resolving leukocytosis, tachycardia HR 117, low B/P 93/60 => RESOLVED TODAY 2. Perineal cellulitis 3. Status post vulvar abscess drainage * POD #1 -> S/P back to OR for debridement right multi-loculated labial abscess last night 4. Uncontrolled diabetes 5. Mild hepatic steatosis. (-)MRSA Nares ABX ALLERGIES: KNDA INVASIVES: PICC RUEXT CURRENT ABX: DAY # => UNASYN + DIFLUCAN S/P Levaquin + Clinda ID RECOMMENDATIONS/PLAN: 1. She is ambulatory and eager to DC home -- much improved post I&D :) * Wound Cx from 01/15/19 am prior to I&D is pending, per op-note cx from 01/15/19 PM I&D also sent * SIRS symptoms resolved with Unasyn + Diflucan 2. She may DC home on Augmentin 875mg BID + Diflucan 100mg po x 5-7 days to OP follow up w/[facility] surgeon . . Consultation Date/Type/Reason Admit Date/Time January 06, 2019 at 08:40 Initial Consult Date 01/04/19 Requesting Provider: SARA WEBB MD Date/Time of Note DATE: 01/16/19 TIME: 13:53 Exam/Review of Systems Exam Vitals Vital Signs Date Temp Pulse Resp B/P (MAP) Pulse Ox O2 O2 Flow FiO2 Time Delivery Rate 01/16/19 98.9 18 96/60 (72) 95 Room Air 08:00 01/16/19 77 02:00 Intake and Output 01/15/19 01/15/19 01/16/19 1515:00 23:00 07:00 IntakeIntake Total 1000 ml 850 ml 200 ml OutputOutput Total 100 ml BalanceBalance 1000 ml 750 ml 200 ml Results Result Diagram: 01/15/19 1053 Results 24hrs Laboratory Tests Test 01/15/19 17:20 01/15/19 19:51 01/15/19 23:12 01/16/19 08:10 Bedside Glucose 124 116 75 100 Test 01/16/19 12:32 Bedside Glucose 77 Medications Medication Current Medications Acetaminophen (Tylenol Tab) 650 mg Q4H PRN PO MILD PAIN(1-3)OR ELEVATED TEMP; Start 01/04/19 at 22:00 Miscellaneous Information 1 ea NOTE XX ; Start 01/04/19 at 22:00 Glucose (Glutose) 15 gm Q15M PRN PO DECREASED GLUCOSE; Start 01/04/19 at 22:00 Glucose (Glutose) 22.5 gm Q15M PRN PO DECREASED GLUCOSE; Start 01/04/19 at 22:00 Dextrose (D50w Syringe) 25 ml Q15M PRN IV DECREASED GLUCOSE; Start 01/04/19 at 22:00 Dextrose (D50w Syringe) 50 ml Q15M PRN IV DECREASED GLUCOSE; Start 01/04/19 at 22:00 Glucagon (Glucagen) 1 mg Q15M PRN IM DECREASED GLUCOSE; Start 01/04/19 at 22:00 Glucose (Glutose) 15 gm Q15M PRN BUCCAL DECREASED GLUCOSE; Start 01/04/19 at 22:00 Fluconazole 100 ml @ 100 mls/hr Q24H IVPB Last administered on 01/16/19at 13:37; Admin Dose 100 MLS/HR; Start 01/05/19 at 14:00 Morphine Sulfate (morphine) 2 mg Q3H PRN IV SEVERE PAIN LEVEL 7-10 Last administered on 01/16/19at 12:37; Admin Dose 2 MG; Start 01/06/19 at 10:30 Acetaminophen/ Hydrocodone Bitart ([place] (5/325)) 1 tab Q6H PRN PO MODERATE PAIN LEVEL 4-6 Last administered on 01/16/19at 10:28; Admin Dose 1 TAB; Start 01/06/19 at 10:30 Ondansetron HCl (Zofran Inj) 4 mg Q6H PRN IV NAUSEA AND/OR VOMITING; Start 01/07/19 at 09:30 Docusate Sodium (Colace) 100 mg BID PO Last administered on 01/16/19 08:11; Admin Dose 100 MG; Start 01/07/19 at 09:30 Insulin Glargine (Lantus) 10 units DAILY@2000 SC Last administered on 01/15/19 23:53; Admin Dose 10 UNITS; Start 01/08/19 at 20:00 Metformin HCl (Glucophage) 850 mg BID WITH MEALS PO Last administered on 01/16/19 08:12; Admin Dose 850 MG; Start 01/08/19 at 18:00 Thiamine HCl (Vitamin B1) 100 mg DAILY PO Last administered on 01/16/19 08:12; Admin Dose 100 MG; Start 01/08/19 at 12:00 Glimepiride (Amaryl) 2 mg AC BREAKFAST DINNER PO Last administered on 01/16/19 08:12; Admin Dose 2 MG; Start 01/08/19 at 17:30 Diagnostic Test (Pha) (Accu-Chek) 1 ea AC MEALS AND BEDTIME XX Last administered on 01/13/19 21:06; Admin Dose 1 EA; Start 01/08/19 at 17:30 Insulin Aspart (Novolog Insulin Pen) NOVOLOG *MILD* ALGORITHM WITH MEALS BEDTIM E SC ; Start 01/15/19 at 12:00 Ampicillin Sodium/ Sulbactam Sodium 100 ml @ 100 mls/hr Q6H IVPB Last administered on 01/16/19at 09:59; Admin Dose 100 MLS/HR; Start 01/15/19 at 22:00 Acetaminophen/ Hydrocodone Bitart ([place] (5/325)) 1 tab Q6H PRN PO PAIN LEVEL 6-10; Start 01/15/19 at 22:00 Acetaminophen/ Hydrocodone Bitart ([place] (10/325)) 1 tab Q6H PRN PO PAIN LEVEL 6-10; Start 01/15/19 at 22:00 Acetaminophen (Tylenol Tab) 650 mg Q6H PRN PO MILD PAIN(1-3)OR ELEVATED TEMP; Start 01/15/19 at 22:00 Ibuprofen (Motrin) 600 mg Q6H PRN PO PAIN LEVEL 1-5; Start 01/15/19 at 22:00 ANIKET BORJA NP January 16, 2019 14:00
[2019-01-16 20:15] VITALS: BP 108/68; PULSE 75; RESP 17
--- NOTE | 2019-01-16 20:56 | QN ---
Documentation Comment c/o severe pain on I&D site most likely due to packing no significant bleeding on op site paking removed , no bleeding noted after removal of packing, no sg of prulent discharge feels better after removal there was significant induration without fluctuation on medial aspect of rt labia majora which is not connect to the drainage site WBC never high , prior to I&D only 7000 normo glycemic A s/p I&D on vulvar abscess?#1 P observe with CANDY Echavarria MD January 16, 2019 20:55
[2019-01-16] MEDS: INSULIN GLARGINE [LANTus] (100 UNITS/ML) SYG SC SCH (21:02)
[2019-01-17 01:55] VITALS: BP 118/72; PULSE 63; RESP 16
[2019-01-17] MEDS: AMPICILLIN/SULB 3 GM/NS (PMX) 100 ML IVPB SCH ×2 (03:58→10:13)
[2019-01-17] MEDS: ACCU-CHEK XX SCH ×2 (07:00→11:30)
[2019-01-17] MEDS: INSULIN ASPART [NOVOLOG] 3 ML PEN SC SCH ×2 (08:00→12:00)
[2019-01-17 08:03] VITALS: BP 104/65; PULSE 71; RESP 18
[2019-01-17] MEDS: morphine 2 MG INJ IV PRN ×2 (08:06→11:24)
[2019-01-17] MEDS: THIAMINE 100 MG TAB PO SCH (08:14)
[2019-01-17] MEDS: GLIMEPIRIDE 2 MG TAB PO SCH (08:14)
[2019-01-17] MEDS: metFORMIN 850 MG TAB PO SCH (08:15)
[2019-01-17] MEDS: DOCUSATE SODIUM 100 MG CAP PO SCH (10:13)
[2019-01-17] MEDS ORDERED: SILVER NITRATE SWAB TOP ONE (10:52)
[2019-01-17] MEDS ORDERED: LIDOCAINE 1% (MDV) 20 ML INJ INJ ONE (11:00)
[2019-01-17] MEDS ORDERED: LIDOCAINE 1% (MPF) 30 ML INJ INJ ONE (11:00)
--- NOTE | 2019-01-17 13:50 | QN ---
Documentation Comment Patient admitted on January 04, 2019 with right vulvar abscess Status post I&D by emergency physician upon admission with minimal improvement in her symptoms She was placed on IV antibiotics throughout her hospital course and antibiotics were adjusted according to the culture results Subsequently patient had an I&D of vulvar abscess on January 15, 2019- please refer to Op note for details Vulvar packing was removed last night Patient stable and afebrile today with normal WBCs She reports that she is much improved She strongly desires to be discharged home today Vital signs stable VS - Last 72 Hours, by Label Date Temp Pulse Resp B/P (MAP) Pulse Ox O2 O2 Flow FiO2 Time Delivery Rate 01/17/19 98.0 71 18 104/65 98 Room Air 08:03 (78) 01/17/19 98.2 63 16 118/72 95 Room Air 01:55 (87) 01/16/19 98.2 75 17 108/68 96 Room Air 20:15 (81) 01/16/19 97.7 18 92/52 (65) 97 Room Air 14:00 01/16/19 98.9 18 96/60 (72) 95 Room Air 08:00 01/16/19 97.4 77 18 91/55 (67) 96 Room Air 02:00 01/15/19 98.2 83 17 119/64 100 Room Air 23:10 (82) 01/15/19 78 11 100/63 97 Room Air 22:43 (75) 01/15/19 80 14 109/67 99 Room Air 22:38 (81) 01/15/19 78 15 109/65 97 Room Air 22:33 (80) 01/15/19 80 12 91/72 (78) 98 Room Air 22:28 01/15/19 78 14 108/65 95 Room Air 22:23 (79) 01/15/19 84 15 115/69 98 Room Air 22:18 (84) 01/15/19 82 15 107/67 94 Room Air 22:13 (80) 01/15/19 82 13 114/68 94 Room Air 22:08 (83) 01/15/19 86 17 116/62 97 Room Air 22:03 (80) 01/15/19 86 16 117/68 97 Room Air 21:58 (84) 01/15/19 84 18 117/67 96 Room Air 21:53 (84) 01/15/19 90 17 112/65 96 Room Air 21:48 (81) 01/15/19 98.0 21:47 01/15/19 96 29 106/67 98 Room Air 21:43 (80) 01/15/19 114/57 Room Air 21:38 (76) 01/15/19 98.0 92 18 106/67 96 Room Air 21:30 (80) 01/15/19 100.2 117 20 136/80 96 Room Air 15:10 (98) 01/15/19 97.9 83 16 93/60 (71) 97 Room Air 13:57 01/15/19 97.8 67 16 97/65 (76) 97 Room Air 07:37 01/15/19 98.0 90 17 90/68 (75) 98 Room Air 02:53 01/14/19 98.3 92 20 122/65 95 Room Air 20:11 (84) Hematology - 72 Hrs Test 01/15/19 10:53 Hematocrit 38.3 % (37.0-47.0) Hemoglobin 13.0 g/dl (12.0-16.0) Mean Corpuscular Hemoglobin 30.9 pg (29.0-33.0) Mean Corpuscular Hemoglobin Concent 33.9 g/dl (32.0-37.0) Mean Corpuscular Volume 91.0 fl (82.0-101.0) Mean Platelet Volume 9.2 fl (7.4-10.4) Platelet Count 510 10^3/UL (140-415) #H Red Blood Count 4.21 10^6/ul (4.20-5.40) Red Cell Distribution Width 11.8 % (11.5-14.5) White Blood Count 7.0 10^3/ul (4.8-10.8) # Chemistry Test 01/14/19 17:13 01/14/19 21:10 01/15/19 00:29 01/15/19 05:02 Bedside 155 128 192 212 Glucose mg/dL (70-220) mg/dL (70-220) mg/dL (70-220) mg/dL (70-220) Test 01/15/19 08:21 01/15/19 12:07 01/15/19 17:20 01/15/19 19:51 Bedside 168 131 124 116 Glucose mg/dL (70-220) mg/dL (70-220) mg/dL (70-220) mg/dL (70-220) Test 01/15/19 23:12 01/16/19 08:10 01/16/19 12:32 01/16/19 17:21 Bedside 75 100 77 112 Glucose mg/dL (70-220) mg/dL (70-220) mg/dL (70-220) mg/dL (70-220) Test 01/16/19 20:59 01/17/19 08:14 01/17/19 12:51 Bedside 115 82 132 Glucose mg/dL (70-220) mg/dL (70-220) mg/dL (70-220) Upon physical exam; Significant reduction in the vulvar induration; although some palpable induration without fluctuation on medial aspect of right labia majora which is not connected to the drainage site Assessment and plan Patient was significantly counseled that it may be necessary to obtain biopsy from this persistent induration to rule out any evidence of vulvar malignancy I offered the patient to perform the biopsy today; but the patient declined for the biopsy to be done today as she indicated that she will follow-up with [facility] I contacted the case management and discussed this patient with them to make sure of confirmation of an appointment with [facility] She is confirmed for an appointment on Saturday January 26, 2019 She was given prescriptions for oral antibiotics by infectious disease additionally she was given prescription for her diabetic meds and pain meds by the hospitalist MAKAYLA LUCERO MD January 17, 2019 13:50
--- NOTE | 2019-01-17 13:59 | DS ---
Date/Time of Note Date/Time of Note DATE: 01/17/19 TIME: 13:58 Discharge Summary Admission/Discharge Info Admit Date/Time January 06, 2019 at 08:40 Discharge Date/Time 01/17/2019 Discharge Diagnosis Stable Patient Condition: Good Consults Infectious disease Gynecology/laborist Hospitalist Case management Procedures Status post I&D of vulvar abscess/hematoma on January 15, 2019 Hx of Present Illness Persistent right vulvar abscess/hematoma Hospital Course Patient admitted on January 04, 2019 with right vulvar abscess Status post I&D by emergency physician upon admission with minimal improvement in her symptoms She was placed on IV antibiotics throughout her hospital course and antibiotics were adjusted according to the culture results Subsequently patient had an I&D of vulvar abscess on January 15, 2019- please refer to Op note for details Vulvar packing was removed last night Patient stable and afebrile today with normal WBCs She reports that she is much improved She strongly desires to be discharged home today Vital signs stable Upon physical exam; Significant reduction in the vulvar induration; although some palpable induration without fluctuation on medial aspect of right labia majora which is not connected to the drainage site Assessment and plan Patient was significantly counseled that it may be necessary to obtain biopsy from this persistent induration to rule out any evidence of vulvar malignancy I offered the patient to perform the biopsy today; but the patient declined for the biopsy to be done today as she indicated that she will follow-up with [facility] I contacted the case management and discussed this patient with them to make sure of confirmation of an appointment with [facility] She is confirmed for an appointment on Saturday January 26, 2019 She was given prescriptions for oral antibiotics by infectious disease additionally she was given prescription for her diabetic meds and pain meds by the hospitalist Home Meds Reported Medications Metformin Hcl (Glucophage) 500 Mg Tablet, 850 MG PO WITH BREAKFAST DINNE, #60 TAB 01/17/19 Metformin Hcl* (Metformin Hcl*) 500 Mg Tablet, 500 MG PO BID WITH MEALS 01/04/19 Follow-up Plan Patient was seen and cleared by case management for follow-up care with [facility] She has an appointment on next Thursday01/26/2019 at [facility] Primary Care Provider Care Physician No Primary Time spent on discharge: > 30 minutes Pending Labs Laboratory Tests Test 01/16/19 17:21 01/16/19 20:59 01/17/19 08:14 01/17/19 12:51 Bedside 112 115 82 132 Glucose mg/dL (70-220) mg/dL (70-220) mg/dL (70-220) mg/dL (70-220) Hematology - 72 Hrs Test 01/15/19 10:53 Hematocrit 38.3 % (37.0-47.0) Hemoglobin 13.0 g/dl (12.0-16.0) Mean Corpuscular Hemoglobin 30.9 pg (29.0-33.0) Mean Corpuscular Hemoglobin Concent 33.9 g/dl (32.0-37.0) Mean Corpuscular Volume 91.0 fl (82.0-101.0) Mean Platelet Volume 9.2 fl (7.4-10.4) Platelet Count 510 10^3/UL (140-415) #H Red Blood Count 4.21 10^6/ul (4.20-5.40) Red Cell Distribution Width 11.8 % (11.5-14.5) White Blood Count 7.0 10^3/ul (4.8-10.8) # Chemistry Test 01/14/19 17:13 01/14/19 21:10 01/15/19 00:29 01/15/19 05:02 Bedside 155 128 192 212 Glucose mg/dL (70-220) mg/dL (70-220) mg/dL (70-220) mg/dL (70-220) Test 01/15/19 08:21 01/15/19 12:07 01/15/19 17:20 01/15/19 19:51 Bedside 168 131 124 116 Glucose mg/dL (70-220) mg/dL (70-220) mg/dL (70-220) mg/dL (70-220) Test 01/15/19 23:12 01/16/19 08:10 01/16/19 12:32 01/16/19 17:21 Bedside 75 100 77 112 Glucose mg/dL (70-220) mg/dL (70-220) mg/dL (70-220) mg/dL (70-220) Test 01/16/19 20:59 01/17/19 08:14 01/17/19 12:51 Bedside 115 82 132 Glucose mg/dL (70-220) mg/dL (70-220) mg/dL (70-220) MAKAYLA LUCERO MD January 17, 2019 13:59
[2019-01-17] MEDS ORDERED: METF500T PO (14:57)
[2019-01-17] MEDS ORDERED: GLIM2TAB PO ×3 (15:02→15:05)
--- NOTE | 2019-01-17 15:02 | CONS ---
Assessment/Plan Assessment/Plan Hospital Course (Demo Recall) Alert, feels much better, no fevers Wound culture grew Jaquelin albicans and glabrata and coag negative staph species, repeat cx + E coli/strep/JONATAN Antimicrobials: Clindamycin fluconazole Levaquin Physical examination obese well-developed middle-aged woman who is alert in no distress. Head atraumatic normocephalic neck is supple chest rise symmetrical breath sounds clear heart S1-S2 abdomen soft bowel sounds present extremities without cyanosis Assessment: 1. Resolving perineal cellulitis 2. Status post vulvar abscess drainage 3. Uncontrolled diabetes Plan: Remains stable, status post repeat I&D, okay discharge on oral antibiotics for 7 more days Consultation Date/Type/Reason Admit Date/Time January 06, 2019 at 08:40 Initial Consult Date 01/04/19 Type of Consult id Requesting Provider: SARA WEBB MD Date/Time of Note DATE: 01/17/19 TIME: 15:01 Exam/Review of Systems Exam Vitals Vital Signs Date Temp Pulse Resp B/P (MAP) Pulse Ox O2 O2 Flow FiO2 Time Delivery Rate 01/17/19 98.0 71 18 104/65 98 Room Air 08:03 (78) Intake and Output 01/16/19 01/16/19 01/17/19 1515:00 23:00 07:00 IntakeIntake Total 200 ml 200 ml 100 ml BalanceBalance 200 ml 200 ml 100 ml Results Result Diagram: 01/15/19 1053 Results 24hrs Laboratory Tests Test 01/16/19 17:21 01/16/19 20:59 01/17/19 08:14 01/17/19 12:51 Bedside Glucose 112 115 82 132 Medications Medication Current Medications Acetaminophen (Tylenol Tab) 650 mg Q4H PRN PO MILD PAIN(1-3)OR ELEVATED TEMP; Start 01/04/19 at 22:00 Miscellaneous Information 1 ea NOTE XX ; Start 01/04/19 at 22:00 Glucose (Glutose) 15 gm Q15M PRN PO DECREASED GLUCOSE; Start 01/04/19 at 22:00 Glucose (Glutose) 22.5 gm Q15M PRN PO DECREASED GLUCOSE; Start 01/04/19 at 22:00 Dextrose (D50w Syringe) 25 ml Q15M PRN IV DECREASED GLUCOSE; Start 01/04/19 at 22:00 Dextrose (D50w Syringe) 50 ml Q15M PRN IV DECREASED GLUCOSE; Start 01/04/19 at 22:00 Glucagon (Glucagen) 1 mg Q15M PRN IM DECREASED GLUCOSE; Start 01/04/19 at 22:00 Glucose (Glutose) 15 gm Q15M PRN BUCCAL DECREASED GLUCOSE; Start 01/04/19 at 22:00 Fluconazole 100 ml @ 100 mls/hr Q24H IVPB Last administered on 01/16/19 13:37; Admin Dose 100 MLS/HR; Start 01/05/19 at 14:00 Morphine Sulfate (morphine) 2 mg Q3H PRN IV SEVERE PAIN LEVEL 7-10 Last administered on 01/17/19 11:24; Admin Dose 2 MG; Start 01/06/19 at 10:30 Acetaminophen/ Hydrocodone Bitart ([place] (5/325)) 1 tab Q6H PRN PO MODERATE PAIN LEVEL 4-6 Last administered on 01/16/19 21:05; Admin Dose 1 TAB; Start 01/06/19 at 10:30 Ondansetron HCl (Zofran Inj) 4 mg Q6H PRN IV NAUSEA AND/OR VOMITING; Start 01/07/19 at 09:30 Docusate Sodium (Colace) 100 mg BID PO Last administered on 01/17/19 10:13; Admin Dose 100 MG; Start 01/07/19 at 09:30 Insulin Glargine (Lantus) 10 units DAILY@2000 SC Last administered on 01/16/19 21:02; Admin Dose 10 UNITS; Start 01/08/19 at 20:00 Metformin HCl (Glucophage) 850 mg BID WITH MEALS PO Last administered on 01/17/19 08:15; Admin Dose 850 MG; Start 01/08/19 at 18:00 Thiamine HCl (Vitamin B1) 100 mg DAILY PO Last administered on 01/17/19 08:14; Admin Dose 100 MG; Start 01/08/19 at 12:00 Glimepiride (Amaryl) 2 mg AC BREAKFAST DINNER PO Last administered on 01/17/19 08:14; Admin Dose 2 MG; Start 01/08/19 at 17:30 Diagnostic Test (Pha) (Accu-Chek) 1 ea AC MEALS AND BEDTIME XX Last administered on 5/9/19at 21:06; Admin Dose 1 EA; Start 01/08/19 at 17:30 Insulin Aspart (Novolog Insulin Pen) NOVOLOG *MILD* ALGORITHM WITH MEALS BEDTIME SC ; Start 01/15/19 at 12:00 Ampicillin Sodium/ Sulbactam Sodium 100 ml @ 100 mls/hr Q6H IVPB Last administered on 01/17/19at 10:13; Admin Dose 100 MLS/HR; Start 01/15/19 at 22:00 Acetaminophen/ Hydrocodone Bitart ([place] (5/325)) 1 tab Q6H PRN PO PAIN LEVEL 6-10; Start 01/15/19 at 22:00 Acetaminophen/ Hydrocodone Bitart ([place] (10/325)) 1 tab Q6H PRN PO PAIN LEVEL 6-10; Start 01/15/19 at 22:00 Acetaminophen (Tylenol Tab) 650 mg Q6H PRN PO MILD PAIN(1-3)OR ELEVATED TEMP; Start 01/15/19 at 22:00 Ibuprofen (Motrin) 600 mg Q6H PRN PO PAIN LEVEL 1-5; Start 01/15/19 at 22:00 CHAPIN GARCÍA NP January 17, 2019 15:02
[2019-01-17] MEDS ORDERED: HYDR-4011 PO (15:04)
[2019-01-17] MEDS ORDERED: LEVO500T48 PO (15:08)
[2019-01-17] MEDS ORDERED: CLIN300C10 PO (15:09)
[2019-01-17] MEDS ORDERED: FLUC100T PO (15:12)
== END 2019-01-17 16:32 | disposition home or self-care (01) | DRG 746 ==
LOC: FTE 08:46 → 5EC 17:38 → OBSVTOIN 01-06 08:40
PROVIDERS: ADMIT Obstetrics & Gynecology; ATTEND Obstetrics & Gynecology
PROC: 0U9M0ZZ Drainage of Vulva, Open Approach (ICD-10-PCS; 2019-01-04)
PROC: 0U9M0ZX Drainage of Vulva, Open Approach, Diagnostic (ICD-10-PCS; principal; 2019-01-15 20:00)
DX: N76.4 Abscess of vulva (principal); L03.315 Cellulitis of perineum; E11.65 Type 2 diabetes mellitus with hyperglycemia; B37.3 Candidiasis of vulva and vagina; K76.0 Fatty (change of) liver, not elsewhere classified; Z79.84 Long term (current) use of oral hypoglycemic drugs
CPT/HCPCS: 72192; 74176; 80053; 81025; 82962; 83036; 85025; 87070; 87075; 87102; 87116; 96361; 96365; 96375; 99217; G0378; J0295; J1170; J1815; J2175; J2250; J2270; J2405; J2543; J2765; J3010; J3370; J7040; J7042; J7050